=== PATIENT | male | born 1945 | race Hispanic/Latino ===

== ENCOUNTER 2017-08-16 09:36 | Outpatient (CLI) | payer MEDICAID ==
--- NOTE | 2017-08-16 11:48 | PRG ---
DATE OF SERVICE: 08/16/2017 HISTORY: Mr. Kana Post is a very pleasant 72-year-old gentleman, Samoan speaking only, who presents to the [facility]ound [facility] for evaluation of a wound of his right soqdh-gin-qruz amputation stump, subsequent to right mlyef-otu-jxzp amputation. The patient underwent intraoperative debridement an d irrigation. At this time, the patient also underwent wound VAC placement. Upon discharge from [facility], the patient was referred to the Wound Center for assistance with dr nhi benavides of the wound VAC. Previously, the patient stated with the aid of a front worker that orin valencia had completed taking the p.o. antibiotics as prescribed for him at the time of discharge. The pat ient has completed a course of negative pressure therapy and has been receiving dressing changes of Aquacel AG 3 times per week after cleansing and irrigation. PHYSICAL EXAMINATION: VITAL SIGNS: Temperature 98.8, pulse 74, respirations 18, blood pressure 144/65, Accu-Chek 130. EXTREMITIES: A wound of the right eoxbx-gmf-hpnq amputation stump is present, which measures approx imately 1.9 x 0.7 cm. The dimensions of the wound at the time of the patient's visit on 08/02/2017 were approximately 4.3 x 1.4 cm. Granulation tissue is present within the wound margins. Necrotic and nonviable tissue present within the wound margins was debrided with an excisional full-thickness debridement. Post-debridement measurements are approximately 0.9 x 2.3 cm. No purulent drainage i s associated with the wound. No erythema of the skin surrounding the wound is present. No macerati on of the skin of the periwound is noted. No significant edema of the right nxkbi-gle-xovn amputati on stump is present on exam today. ASSESSMENT AND PLAN: 1. Right fdyvi-yhl-dkhh amputation stump wound as described above. As stated above, the patient john s completed a course of negative pressure therapy. Dressing changes of Aquacel AG will be continued 3 times per week after cleansing and irrigation. I will see Mr. Post again in 2 weeks. 2. Diabetes mellitus. The patient's Accu-Chek in clinic today is 130. The patient has been remind ed that for optimal wound healing, his blood glucoses should remain below 150. 3. Hypertension. 4. Peripheral vascular disease. 5. Peptic ulcer disease. 6. History of gastrointestinal bleeding secondary to gastric ulcer.
== END 2017-08-16 09:37 | disposition home or self-care (01) ==
LOC: WCC 09:36
PROVIDERS: ATTEND Family Medicine
DX: T87.89 Other complications of amputation stump (principal); E11.8 Type 2 diabetes mellitus with unspecified complications; I10 Essential (primary) hypertension; I73.9 Peripheral vascular disease, unspecified; K27.9 Peptic ulcer, site unspecified, unspecified as acute or chronic, without hemorrhage or perforation
CPT/HCPCS: 11042

== ENCOUNTER 2017-09-01 08:18 | Outpatient (CLI) | payer MEDICAID ==
--- NOTE | 2017-09-01 09:20 | PRG ---
DATE OF SERVICE: 09/01/2017 HISTORY: Mr. Kana Post is a very pleasant 72-year-old gentleman, Afghan-speaking only, who presents to the Wound Center for evaluation of a wound of his right xpkur-nhi-tzhe amputation stump subsequent to right hqbzf-dri-vtpk amputation. The patient underwent intraoperative debridement and irrigation. At this time, the patient also underwent wound VAC placement. Upon discharge from [facility], the patient was referred to the Wound Center for assistance with israel ssing changes of the wound VAC. Previously, the patient stated with the aid of a financial manager that he had completed taking p.o. antibiotics as prescribed for him at the time of discharge. The patient has completed a course of negative pressure therapy and has been receiving dressing changes of Silve rcel 3 times per week after cleansing and irrigation. PHYSICAL EXAMINATION: VITAL SIGNS: Temperature 97.9, pulse 77, respirations 18, blood pressure 119/56, Accu-Chek 125. EXTREMITIES: A wound of the right muiro-hsd-qwrv amputation stump is present which measures approxi mately 0.6 x 0.8 cm. The dimensions of the wound at the time of the patient's visit on 08/16/2017 w ere approximately 1.9 x 0.7 cm. Granulation tissue is present within the wound margins. Nonviable tissue present within the wound margins was debrided with an excisional full-thickness debridement. No purulent drainage is associated with the wound. No erythema of the skin surrounding the wound i s present. No maceration of the skin of the periwound is noted. No significant edema of the right cxlvs-eiw-ftil amputation stump is present on exam today. ASSESSMENT AND PLAN: 1. Right knee amputation stump wound as described above. As stated above, the patient has complete d a course of negative pressure therapy. Dressing changes of Silvercel will be continued 3 times pe r week after cleansing and irrigation. I will see Mr. Post again in two weeks. 2. Diabetes mellitus. The patient's Accu-Chek in clinic today is 125. The patient has been remind ed that for optimal wound healing, his blood glucoses should remain below 150. 3. Hypertension. 4. Peripheral vascular disease. 5. Peptic ulcer disease. 6. History of gastrointestinal bleeding secondary to gastric ulcer.
== END 2017-09-01 08:19 | disposition home or self-care (01) ==
LOC: WCC 08:18
PROVIDERS: ATTEND Family Medicine
DX: T87.89 Other complications of amputation stump (principal); E11.9 Type 2 diabetes mellitus without complications; I10 Essential (primary) hypertension; I73.9 Peripheral vascular disease, unspecified; K27.9 Peptic ulcer, site unspecified, unspecified as acute or chronic, without hemorrhage or perforation; Z87.19 Personal history of other diseases of the digestive system
CPT/HCPCS: 11042

== ENCOUNTER 2017-09-06 09:52 | Inpatient (IN) | payer MEDICAID, SELFPAY ==
[2017-09-06 13:22] LABS: #Basophils 0.1 thou/uL (0.0-0.2); #Eosinphils 0.3 thou/uL (0.0-0.7); #Lymphocytes 1.1 thou/uL (1.20-3.40); #Monocytes 0.7 thou/uL (0.11-0.59); #Neutrophils 5.9 thou/uL (1.40-6.50); %Basophils 0.6 % (0.0-1.0); %Lymphocytes 13.5 % (21.0-51.0); %Monocytes 8.2 % (0.0-10.0); Hematocrit 37.5 % (42.0-52.0); Mean Platelet Volume 6.9 fL (7.4-10.4); Red Blood Cell (RBC) Count 4.14 mill/uL (4.70-6.10)
[2017-09-06 13:49] LABS: ALT (SGPT) 13 U/L (8-55); AST (SGOT) 13 U/L (5-34); Alkaline Phosphatase 135 U/L (40-150); Anion Gap 13 mmol/L (10-20); BUN (Urea Nitrogen) 11 mg/dL (8.4-25.7); Bilirubin, Total 0.3 mg/dL (0.2-1.2); Calc. Creatinine Clearance 0 mL/min (70-130); Calcium 9.2 mg/dL (7.8-10.44); Carbon Dioxide 26 mmol/L (23-31); Chloride 89 mmol/L (98-107); Estimated GFR-MDRD Greater than 90; Globulin 3.6 g/dL (2.4-3.5); Protein, Total 7.5 g/dL (5.8-8.1)
[2017-09-06 13:50] LABS: Bilirubin Negative (Negative); Blood, Urine Negative (Negative); Glucose, Urine (Dipstick) 100 mg/dL (Negative); Ketone, Urine Negative (Negative); Nitrite Negative (Negative); Protein, Urine (Dipstick) Negative (Neg-Trace); Urobilinogen 0.2 mg/dL (0.2-1.0)
[2017-09-06] MEDS ORDERED: Piperacillin/Tazobactam 3.375 GM VIAL ONE (15:22)
--- NOTE | 2017-09-06 15:35 | RAD ---
LEFT FOOT THREE VIEWS: History: 72-year-old male with left toe pain. FINDINGS: There is bony demineralization. Degenerative osteoarthrosis changes are noted including the first me tatarsal phalangeal joint. Deformity of the fifth metatarsal evidence for an old healed fracture. No evidence for an acute fracture. IMPRESSION: Degenerative and osteoarthrosis changes with bony demineralization and old healed fracture of the fi fth metatarsal. No acute fracture. POS: OFF
[2017-09-06] MEDS ORDERED: Senokot 8.6 MG TAB PO PRN (16:51)
[2017-09-06] MEDS ORDERED: Milk Of Magnesia 30 ML UDCUP PO PRN (16:51)
[2017-09-06] MEDS ORDERED: Zolpidem Tartrate 5 MG TAB PO PRN (16:51)
[2017-09-06] MEDS ORDERED: Mag-Al 1200 mg/1200 mg/30 ML UDCUP PO PRN (16:51)
[2017-09-06] MEDS ORDERED: Eucerin (Mineral Oil/Petrolatum,White) 30 gm Jar TOP PRN (16:51)
[2017-09-06] MEDS ORDERED: Dextrose 50% Abboject 50 ML SYRINGE SLOW IVP PRN (16:51)
[2017-09-06] MEDS ORDERED: HumaLOG 300 UNITS/3 ML VIAL SC PRN (16:51)
[2017-09-06] MEDS ORDERED: Acetaminophen 325 MG TAB PO PRN (16:51)
[2017-09-06] MEDS ORDERED: Loratadine 10 MG TAB PO PRN (16:51)
[2017-09-06] MEDS ORDERED: Diabetic Tussin 200 MG/10 ML UDCUP PO PRN (16:51)
[2017-09-06] MEDS ORDERED: Ondansetron ODT 4 MG TAB PO PRN (16:51)
[2017-09-06] MEDS ORDERED: Ondansetron HCl/PF 4 MG/2 ML Vial IVP PRN (16:51)
[2017-09-06] MEDS ORDERED: Dextrose 5% in Water 1,000 ML IV PRN (16:51)
[2017-09-06] MEDS ORDERED: Loperamide HCl 2 MG CAP PO PRN ×2 (16:51)
[2017-09-06] MEDS ORDERED: hydrALAZINE 20 MG/ML VIAL SLOW IVP PRN (16:51)
[2017-09-06] MEDS ORDERED: Artificial Tears 18 DROP/0.9 ML EA EYE PRN (16:51)
[2017-09-06] MEDS ORDERED: Sodium Chloride 0.65% Nasal 44 ML BOT EA NARE PRN (16:51)
[2017-09-06] MEDS ORDERED: metFORMIN 500 MG TAB PO SCH (17:00)
[2017-09-06] MEDS: Sodium Chloride 0.9% 1,000 ML IV SCH ×2 (17:52→23:23)
[2017-09-06] MEDS ORDERED: Piperacillin/Tazobactam 3.375 GM in Sodium Chloride 0.9% 100 ML IVPB SCH (18:00)
[2017-09-06 18:02] VITALS: BMI 19.9
--- NOTE | 2017-09-06 19:50 | HP ---
PRIMARY CARE PHYSICIAN: [facility]. REASON FOR ADMISSION: Left great toe gangrene. HISTORY OF PRESENT ILLNESS: A 72-year-old male who has right below knee amputation, who has underlying history of peripheral vascular disease who came to the emergency room with complaint of left foot and left toe pain. The patient noticed discoloration over the left great toe and tip of the left great toe became black. The patient also noticed blackish discoloration at the bases of the left great toe on the plantar aspect. Pain was getting worse with movement. He also noticed some drainage, which is gradually getting worse for last 2 weeks. The patient was treated for skin infection with antibiotic therapy by primary care physician, but patient is not feeling any better. Patient does have severe peripheral vascular disease. He denies any fever or chills. He denies any trauma. He denies any nausea, vomiting, or diarrhea. He denies any UTI symptoms. He denies any chest pain, palpitation or shortness of breath. In emergency room, patient had foot x-ray which showed bony degenerative changes , old healed fracture to fifth metatarsal without any acute process. Routine blood test was also unremarkable. At this point, we are admitting this patient for left great toe cellulitis and gangrenous changes. REVIEW OF SYSTEMS: Please see my HPI for pertinent positive and negative, all other review of system reviewed and negative except as mentioned in the HPI. Constitutional: Weight loss or gain, ability to conduct usual activities. Skin: Rash, itching. Eyes: Double vision, pain. ENT/Mouth: Nose bleeding, neck stiffness, pain, tenderness. Cardiovascular: Palpitations, dyspnea on exertion, orthopnea. Respiratory: Shortness of breath, wheezing, cough, hemoptysis, fever or night sweats. Gastrointestinal: Poor appetite, abdominal pain, heartburn, nausea, vomiting, constipation, or diarrhea. Genitourinary: Urgency, frequency, dysuria, nocturia. Musculoskeletal: Pain, swelling. Neurologic/Psychiatric: Anxiety, depression. Allergy/Immunologic: Skin rash, bleeding tendency. PAST MEDICAL HISTORY: Diabetes type 2, hypertension, dyslipidemia, peripheral vascular disease, gastroesophageal reflux disease, and diabetic neuropathy. PAST PSYCHIATRIC HISTORY: Anxiety and depression. PAST SURGICAL HISTORY: Right knee amputation in 05/26/2017, angiography with revascularization in 04/2017. SOCIAL HISTORY: Patient is , lives at home with the family. No history of alcohol abuse. He smokes about one half pack per day. He quit smoking in . He denies any other illicit drug abuse. FAMILY HISTORY: No strong family history of CAD, CVA or cancer. ALLERGIES: No known drug allergy. CURRENT HOME MEDICATIONS: Ferrous sulfate one tablet t.i.d., gabapentin 300 mg p.o. at bedtime, lisinopril 20 mg p.o. b.i.d., Paxil 20 mg p.o. daily, Protonix 40 mg p.o. daily, Actos 15 mg p.o. daily, metformin 1000 mg p.o. b.i.d. EMERGENCY ROOM COURSE: Patient has received vancomycin, Zosyn, and IV fluid. PHYSICAL EXAMINATION: VITAL SIGNS: On arrival, blood pressure 144/70, pulse 76, respiratory rate 20, temperature 98.2, saturation 100% on room air, weight 54.4 kilograms. GENERAL: Patient is currently alert, awake, in no obvious acute distress. HEENT: Normocephalic, atraumatic. Eyes: Pupils round, reactive to light. Extraocular muscle intact. ENT: Oropharynx within normal limits. Moist mucous membranes. No oral lesions. No pharyngeal erythema, no exudate. NECK: Supple. Range of motion is normal. No meningeal signs of irritation. LUNGS: Clear to auscultation without any rhonchi or rales. CARDIAC: S1, S2 regular. No murmur. No gallop. No rub. ABDOMEN: Soft. Bowel sounds present, nontender, nondistended. No organomegaly. No mass. No suprapubic tenderness. BACK EXAMINATION: Unremarkable, no CVA tenderness. EXTREMITIES: Upper extremity, passive movement of all joints are normal. Lower extremities, right below-knee amputation stump covered with a dressing. Left lower extremity showed black discoloration of the tip of the great toe with surrounding cellulitis and tenderness. Sensation reduced in the left lower extremity. Pulsation is also feeble on left lower extremity. NEUROLOGIC: Nonfocal examination is moving all four limbs. SKIN: No skin rash other than gangrenous changes on the left great toe. PSYCHIATRIC: Normal affect. SIGNIFICANT LABS AND IMAGINGS: Monitor showing sinus rhythm. Last x-ray of foot showing bony degenerative changes, old healed fracture of fifth metatarsals. CBC: WBC 8.0, hemoglobin 12.6, platelet 257,000. ESR 13. BMP: Sodium 123, potassium 4.5, chloride 89, carbon dioxide 26, BUN 11, creatinine 0.64, glucose 213, calcium 9.2, and lactic acid 1.0. 1. LFT: AST 13, ALT 13, alkaline phosphatase 135, albumin 3.9, CRP 2.17. 2. Urinalysis unremarkable. ASSESSMENT AND PLAN: 1. Left great toe cellulitis with early dry gangrene. This patient has severe peripheral vascular disease on the left side and required revascularization in 04/2017. He has a blackish discoloration of the tip of the left great toe as well as surrounding erythema and tenderness. We will keep this patient in the hospital for intravenous antibiotic therapy. We will consult General Surgery for evaluation. We will do Doppler arterial study for vascular assessment. Patient is not willing to go for amputation of toe, but will defer that decision to the general surgeon. While in hospital, we will continue with antibiotic therapy and will monitor clinical response. 2. Severe peripheral vascular disease. The patient had vascular angiography and revascularization in 04/2017. We will continue aspirin 81 mg p.o. daily, Lipitor 40 mg p.o. at bedtime and metoprolol 12.5 mg twice daily. 3. Diabetic neuropathy. We will continue gabapentin 300 mg p.o. at bedtime. 4. Hypertension. We will continue lisinopril 20 mg p.o. twice daily. 5. Diabetes type 2 on oral diabetic medication. We will continue Actos 15 mg p.o. daily along with metformin 1000 mg p.o. b.i.d. Diabetic diet will be given. 6. Anemia, normocytic, normochromic. We will continue ferrous sulfate 325 mg p.o. b.i.d. 7. Anxiety and depression. We will continue Paxil 20 mg p.o. daily. 8. Deep venous thrombosis prophylaxis. Lovenox 40 mg subcu daily. 9. Gastrointestinal prophylaxis, Protonix 40 mg p.o. daily. 10. Hyponatremia, etiology uncertain, but we will give him IV fluid at NS 70 mL per hour and will repeat BMP tomorrow. 11. Code status: The patient is full code and patient's is surrogate decision maker. Disposition plan based on clinical course. We are expecting patient's stay in the hospital more than 2 midnights. Plan of care discussed with the patient's family member at bedside in the emergency room. SAUL
[2017-09-06] MEDS: Lisinopril 20 MG TAB PO SCH (20:55)
[2017-09-06] MEDS: Metoprolol Tartrate 25 MG TAB PO SCH (20:56)
[2017-09-06] MEDS: Atorvastatin Calcium 40 MG TAB PO SCH (21:00)
[2017-09-06] MEDS: Piperacillin/Tazobactam 3.375 GM in Sodium Chloride 0.9% 100 ML IVPB SCH (21:06)
[2017-09-06] MEDS: HYDROcodone/Acetaminophen 5/325 mg Tablet PO PRN (21:11)
[2017-09-07] MEDS: Vancomycin HCl 750 MG in Sodium Chloride 0.9% 250 ML 250 ML IVPB SCH ×2 (02:05→14:00)
[2017-09-07] MEDS: Piperacillin/Tazobactam 3.375 GM in Sodium Chloride 0.9% 100 ML IVPB SCH ×4 (03:27→21:25)
[2017-09-07 03:52] LABS: #Eosinphils 0.4 thou/uL (0.0-0.7); #Lymphocytes 1.4 thou/uL (1.20-3.40); #Monocytes 0.7 thou/uL (0.11-0.59); #Neutrophils 5.1 thou/uL (1.40-6.50); %Basophils 0.6 % (0.0-1.0); %Eosinophils 4.7 % (0.0-10.0); %Lymphocytes 18.8 % (21.0-51.0); %Monocytes 8.5 % (0.0-10.0); Hematocrit 35.7 % (42.0-52.0); Mean Platelet Volume 6.8 fL (7.4-10.4); Red Blood Cell (RBC) Count 3.96 mill/uL (4.70-6.10); White Blood Cell (WBC) Count 7.6 thou/uL (4.8-10.8)
[2017-09-07] MEDS: HYDROcodone/Acetaminophen 5/325 mg Tablet PO PRN ×2 (04:02→19:04)
[2017-09-07 04:04] LABS: Anion Gap 10 mmol/L (10-20); BUN (Urea Nitrogen) 9 mg/dL (8.4-25.7); Calc. Creatinine Clearance 94 mL/min (70-130); Calcium 8.9 mg/dL (7.8-10.44); Carbon Dioxide 26 mmol/L (23-31); Chloride 97 mmol/L (98-107); Estimated GFR-MDRD Greater than 90
--- NOTE | 2017-09-07 06:11 | CON ---
DATE OF CONSULT: 09/06/2017 HISTORY OF PRESENT ILLNESS: Sincere is a 72-year-old male patient who I saw in April for PAD. He had a gangrenous right foot. He was seen by Dr. Andrew oBwen in 04/23/2017. Angiograms were obtai magda revealing severe PAD. He had aortoiliac stent placed. He ended up having a right nmpgh-xxb-ioa e amputation and subsequent to atpfw-llx-jueq amputation. The wound have problems and had to be ope magda and healed secondarily. The patient lives at home. The patient has problems with his left grea t toe. He was seen by a physician, started on antibiotics for suspected nail bed infection. This o ccurred after an injury. He is now admitted by Hospitalist Service for intravenous antibiotics and PAD. Bedside evaluation reveals palpable left femoral pulse and good dopplerable left posterior tib ial pulse and very faint dorsalis pedis pulse. He has changes in left great toe of PAD with celluli tis. There is no randy ulceration or pus. There is no edema. There were changes of PAD on the atiya ntar aspect of the foot, cellulitic process extends to the forefoot. He has tissue in the tip of the great toe. Renal function is normal. I have consulted Dr. Andrew Bowen who will see him. ALLERGIES: None. MEDICATIONS: At home, metronidazole, metformin, Actos, Protonix, Paxil, lisinopril, [place], gabapent in, Cipro. In hospital, he has been started on Zosyn. PAST SURGICAL HISTORY: Right prrqf-txk-ppdz amputation subsequent to hkuxy-xbp-izxg amputation and subsequent to debridement and healed secondarily. PAST MEDICAL HISTORY: Diabetes mellitus, hypertension, elevated cholesterol, and has history of tob acco abuse in the past, none currently. ALCOHOL: None. ALLERGIES: None. REVIEW OF SYSTEMS: Noncontributory. PHYSICAL EXAMINATION: VITAL SIGNS: Temperature 96.8, pulse 69, blood pressure 167/72. HEAD, EYES, EARS, NOSE AND THROAT: Unremarkable. LUNGS: Clear to auscultation. CARDIAC: Regular rate and rhythm without murmur or gallop. ABDOMEN: Soft, nontender. EXTREMITIES: Well-healed right srcud-ncf-fcpd amputation stump. Left groin palpable femoral pulse. Faintly dopplerable dorsalis pedis pulse. Stronger dopplerable posterior tibial pulse nonpalpable . Left foot great toe and forefoot changes as described above. LABORATORY DATA: White count 8, hemoglobin 12. Renal function normal. ASSESSMENT AND PLAN: Severe peripheral artery disease with cellulitis, left foot. Agree with intra venous antibiotics. I have consulted Dr. Andrew Bowen for arteriography. He had run-off of the [facility] leg last hospitalization. We will await further evaluation of left leg. The patient is at risk for limb loss due to peripheral artery disease. Await vascular interventional outcomes.
--- NOTE | 2017-09-07 07:11 | CON ---
DATE OF CONSULTATION: 09/07/2017 HISTORY OF PRESENT ILLNESS: Mr. Post is a 72-year-old gentleman who was admitted with left great toe pain and gangrene. He has a known history of peripheral vascular disease, status post bilateral kissing common iliac artery stents and a left external iliac artery stent in 04/2017. He has subsequently undergone a right jihnf-gpd-hcyp amputation. His left foot has been hurting him for a short period of time. He has never had any left leg evaluation with angiography or CT angiogram. PAST MEDICAL HISTORY: 1. Type 2 diabetes mellitus. 2. Peripheral vascular disease. 3. Hypertension. 4. Dyslipidemia. 5. Gastroesophageal reflux disease. PAST SURGICAL HISTORY: 1. Right above-knee amputation. 2. Revascularization percutaneously in 04/2017. SOCIAL HISTORY: The patient is . He quit smoking in 03/2017. He does not use alcohol. ALLERGIES: None. CURRENT MEDICATIONS: Noted. PHYSICAL EXAMINATION: GENERAL: This is a well-developed, well-nourished man, resting comfortably in bed. VITAL SIGNS: Temperature is 97.8, pulse 68 and regular, blood pressure 125/62. LUNGS: Clear bilaterally. HEART: Rhythm is regular. ABDOMEN: Soft, nontender. EXTREMITIES: Left lower extremity has a dressing on his great toe, right above knee amputation is healing nicely. VASCULAR: He has palpable femoral pulses bilaterally. I cannot palpate pulses below his femoral in either leg. ASSESSMENT AND PLAN: I have reviewed his angiograms from April. On the right side he had a chronically occluded superficial femoral artery with no runoff until a small posterior tibial was visualized at the level of the ankle. He has palpable femoral pulses, so his stents that were placed in April should be widely patent. I feel like a CT angiogram is the best initial route of evaluation. I will review these later today and we can make plans if we feel like he is revascularizable for that standpoint. SAUL
[2017-09-07] MEDS ORDERED: Enoxaparin Sodium 40 MG/0.4 ML SYRINGE SC SCH ×2 (09:00→21:00)
[2017-09-07] MEDS ORDERED: FLU VACC TS2017-18 (>65YR) 0.5 ML SYRINGE IM ONE (09:00)
--- NOTE | 2017-09-07 10:12 | CT ---
CT ANGIO OF ABDOMEN AND PELVIS AND LOWER EXTREMITIES WITH IV ENHANCEMENT: Date: 09/07/17 Multiple axial tomograms obtained through the abdomen and pelvis, and both lower extremities, with I V enhancement in the arterial phase following an angio protocol with multiplanar reconstruction and 3D postprocessing. HISTORY: Gangrene left foot. Prior BKA of right leg. Diabetes. FINDINGS: The abdominal aorta exhibits diffuse atherosclerotic change. There is mild ectasia of the distal abd ominal aorta with diameter measured at 2.6 cm. Lumen is very irregular with peripheral thrombus with in the abdominal aorta. There is no significant stenosis at the origin of the celiac artery. There is calcified plaque at the origin of the superior mesenteric artery, which does appear to prod uce moderate stenosis which is approaching hemodynamic significance (50% diameter). There is atherosclerotic plaque at the origin of both renal arteries. There is moderate stenosis at the origin of both renal arteries, although this does not appear to be greater than 50% diameter. At the aortic bifurcation, there is an aortoiliac graft in place which is patent. Graft ties in to b oth common iliac arteries. There is atherosclerotic plaque seen in the mid and distal right common iliac with mild aneurysmal d ilatation measured at approximately 1.3 cm diameter. This produces mild stenosis which does not appe ar hemodynamically significant. The right internal iliac shows diffuse disease. The right external iliac is patent without significant stenosis. The right common femoral shows diffuse disease. There is significant stenosis at the origin of the right superficial femoral artery, which is greate r than 50% diameter. Profunda is patent. Diffuse disease throughout the right superficial femoral with occlusion in the upper thigh. Patient has an vgjel-vin-kcxq amputation on the right. The left mid and distal common iliac shows diffuse disease, but no significant stenosis. There is mi ld aneurysmal dilatation of the distal left common iliac measured at up to 1.5 cm diameter. Diffuse disease at the origin of the left internal and external iliacs. There is a left external juaquin ac stent which begins at the origin of the left external iliac. The stent does appear patent. There is stenosis at the distal end of the stent and at the beginning of the left common femoral, which do es appear to be hemodynamically significant, greater than 50%. Diffuse disease in the left common femoral. There is mild stenosis at the origin of the left superfi cial femoral artery and there is significant stenosis in the proximal left superficial femoral arter y just beyond its origin estimated at 50% diameter. Diffuse disease throughout the proximal left superficial femoral artery with occlusion in the mid th igh. There is reconstitution near Jaiden's canal. The popliteal is patent. Popliteal does trifurcate below the knee joint and there are three vessels identified to the ankle. The anterior tibial arter y occludes at the ankle. Lung bases show chronic lung parenchymal change. Liver, spleen, pancreas, adrenal glands, and kidneys are unremarkable. Bowel loops are unremarkable. IMPRESSION: 1. Diffuse atherosclerotic disease involving the abdominal aorta with ectasia. 2. 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 3. Aortoiliac graft patent. 4. 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 5. Significant stenosis at the origin of the left external iliac. 6. Occlusion of the left superficial femoral artery mid thigh with reconstitution distally as descr ibed above. POS: CRESCENCIO
--- NOTE | 2017-09-07 13:12 | PDOC.PN ---
- Subjective Encounter Start Date: 09/07/17 Encounter Start Time: 13:10 Patient seen and examined. No new complaints. No overnight events - Objective Resuscitation Status: Resuscitation Status FULL:Full Resuscitation MAR Reviewed: Yes Vital Signs & Weight: Vital Signs (12 hours) Temp Pulse Resp BP BP Pulse Ox 09/07/17 12:12 97.9 F 62 18 124/60 100 09/07/17 08:14 98.6 F 74 18 97 09/07/17 08:00 98.6 F 74 18 129/60 97 09/07/17 04:00 97.8 F 68 18 125/62 98 Weight Admit Weight 119 lb 14.896 oz Weight 119 lb 14.896 oz I&O: 09/06/17 09/07/17 09/08/17 06:59 06:59 06:59 Intake Total 800 Output Total 1550 Balance -750 Result Diagrams: 09/07/17 03:27 09/07/17 03:27 Additional Labs: Accuchecks 09/07/17 09/07/17 09/06/17 12:12 06:50 21:05 POC Glucose 157 H 146 H 175 H 09/06/17 09/06/17 17:28 15:02 POC Glucose 134 H 182 H Phys Exam - Physical Examination Constitutional: NAD Respiratory: no wheezing, no rhonchi Cardiovascular: RRR, no rub Gastrointestinal: soft, non-tender, positive bowel sounds Musculoskeletal: no edema no new skin findings Neurological: moves all 4 limbs Dx/Plan (1) Cellulitis of great toe of left foot Code(s): L03.032 - CELLULITIS OF LEFT TOE Status: Acute Comment: with early gangrene (2) Hyponatremia Code(s): E87.1 - HYPO-OSMOLALITY AND HYPONATREMIA Status: Acute (3) DM type 2 (diabetes mellitus, type 2) Status: Chronic Qualifiers: Comment: with diabetic neuropathy (4) Peripheral arterial disease Code(s): I73.9 - PERIPHERAL VASCULAR DISEASE, UNSPECIFIED Status: Chronic Comment: s/p stenting b/l 05/08 (5) other issues per previous notes Status: Chronic Comment: Anxiety/Depression, chronic Anemia, h/o rt AKA - Plan cont current plan of care, continue antibiotics, DVT proph w/lovenox * Cont Atbx * AM labs * s/p MRI and CTA - results pending * CT/Gen surg pending * Cont to monitor * DC Metformin * Change Lovenox to Heparin for DVT prophylaxis Review of Systems - Review of Systems Respiratory: negative: Cough, Dry, Shortness of Breath, Hemoptysis, SOB with Excertion, Pleuritic Pain, Sputum, Wheezing Cardiovascular: negative: Chest Pain, Palpitations, Orthopnea, Paroxysmal Noc. Dyspnea, Edema, Light Headedness, Other - Medications/Allergies Allergies/Adverse Reactions: Allergies Allergy/AdvReac Type Severity Reaction Status Date / Time No Known Drug Allergies Allergy Verified 06/07/17 01:14 Medications: Current Medications Acetaminophen (Tylenol) 650 mg PO Q4H PRN PRN Reason: Headache/Fever or Pain Hydrocodone Bitart/Acetaminophen ([place] 5/325) 1 tab PO Q4H PRN PRN Reason: Moderate Pain (4-6) Last Admin: 09/07/17 04:02 Dose: 1 tab Al Hydroxide/Mg Hydroxide (Maalox) 30 ml PO Q6H PRN PRN Reason: Heartburn or Indigestion Artificial Tears (Tears Naturale) 0 drop EA EYE PRN PRN PRN Reason: Dry Eyes Aspirin (Aspirin Chewable) 81 mg PO DAILY [facility] Atorvastatin Calcium (Lipitor) 40 mg PO HS [facility] Last Admin: 09/06/17 21:00 Dose: 40 mg Dextrose/Water (Dextrose 50%) 25 gm SLOW IVP PRN PRN PRN Reason: Hypoglycemia Enoxaparin Sodium (Lovenox) 40 mg SC 2100 [facility] Gabapentin (Neurontin) 300 mg PO DAILY [facility] Glucagon (Glucagon) 1 mg IM PRN PRN PRN Reason: Hypoglycemia Guaifenesin (Robitussin Sf) 200 mg PO Q4H PRN PRN Reason: Cough Hydralazine HCl (Apresoline) 10 mg SLOW IVP Q4H PRN PRN Reason: Systolic BP > 180 Dextrose/Water (D5w) 1,000 mls @ 0 mls/hr IV .Q0M PRN; As Directed PRN Reason: Hypoglycemia Sodium Chloride (Normal Saline 0.9%) 1,000 mls @ 70 mls/hr IV .[id number] [facility] Last Admin: 09/06/17 23:23 Dose: 1,000 mls Piperacillin Sod/Tazobactam (Sod 3.375 gm/ Sodium Chloride) 100 mls @ 200 mls/ hr IVPB 0300,0900,1500,2100 [facility] Last Admin: 09/07/17 08:55 Dose: 100 mls Vancomycin HCl 750 mg/ Sodium (Chloride) 250 mls @ 250 mls/hr IVPB 0200,1400 [facility] Last Admin: 09/07/17 02:05 Dose: 250 mls Insulin Human Lispro (Humalog) 0 units SC .MODERATE SLIDING SC PRN PRN Reason: Moderate Correctional Scale Insulin Human Lispro (Humalog) 0 units SC .BEDTIME SLIDING SC PRN PRN Reason: Bedtime Correctional Scale Lisinopril (Zestril) 20 mg PO BID [facility] Last Admin: 09/06/17 20:55 Dose: 20 mg Loperamide HCl (Imodium) 2 mg PO PRN PRN PRN Reason: Diarrhea/Loose Stools Loperamide HCl (Imodium) 2 mg PO PRN PRN PRN Reason: Diarrhea/Loose Stools Loratadine (Claritin) 10 mg PO DAILYPRN PRN PRN Reason: Sinus Symptoms Magnesium Hydroxide (Milk Of Magnesium) 30 ml PO DAILYPRN PRN PRN Reason: Constipation Metoprolol Tartrate (Lopressor) 12.5 mg PO BID [facility] Last Admin: 09/06/17 20:56 Dose: 12.5 mg Mineral Oil/White Petrolatum (Eucerin Cream) 0 gm TOP BIDPRN PRN PRN Reason: Dry Skin Miscellaneous Medication (Pharmacy To Dose) 1 each IVPB ONE PRN PRN Reason: Pharmacy to dose Stop: 10/06/17 16:52 Ondansetron HCl (Zofran Odt) 4 mg PO Q6H PRN PRN Reason: Nausea/Vomiting Ondansetron HCl (Zofran) 4 mg IVP Q6H PRN PRN Reason: Nausea/Vomiting Pantoprazole Sodium (Protonix) 40 mg PO DAILY [facility] Paroxetine HCl (Paxil) 20 mg PO DAILY [facility] Pioglitazone HCl (Actos) 15 mg PO DAILY [facility] Saccharomyces Boulardii (Florastor) 250 mg PO DAILY [facility] Senna (Senokot) 2 tab PO HSPRN PRN PRN Reason: Constipation Sodium Chloride ([place] Nasal [place] 0.65%) 0 ml EA NARE QIDPRN PRN PRN Reason: Nasal Congestion Sodium Chloride (Flush - Normal Saline) 10 ml IVF Q12HR [facility] Last Admin: 09/06/17 21:06 Dose: 10 ml Sodium Chloride (Flush - Normal Saline) 10 ml IVF PRN PRN PRN Reason: Saline Flush Zolpidem Tartrate (Ambien) 5 mg PO HSPRN PRN PRN Reason: Insomnia
[2017-09-07] MEDS ORDERED: Gadobenate Dimeglumine 529 MG/1 ML (20ML VIAL) ONE (16:12)
[2017-09-07] MEDS: Lisinopril 20 MG TAB PO SCH ×2 (16:35→21:26)
[2017-09-07] MEDS: Gabapentin 300 MG CAP PO SCH (16:35)
[2017-09-07] MEDS: Metoprolol Tartrate 25 MG TAB PO SCH ×2 (16:35→21:25)
[2017-09-07] MEDS: PARoxetine 20 MG TAB PO SCH (16:36)
[2017-09-07] MEDS: Saccharomyces boulardii 250 MG CAP PO SCH (16:36)
[2017-09-07] MEDS: Pioglitazone HCl 15 MG TAB PO SCH (16:38)
--- NOTE | 2017-09-07 17:09 | MRI ---
LEFT FOREFOOT MRI WITH AND WITHOUT IV CONTRAST: Date: 09/07/17 HISTORY: 72-year-old male with left great toe metatarsophalangeal joint diabetic infection. Tripped on foot 3 weeks ago. TECHNIQUE: Multiplanar, multisequence MRI examination of the left foot performed with and without IV contrast. FINDINGS: There is some motion artifact on several sequences resulting in image degradation. There are some ar throsis changes, particularly involving the first metatarsophalangeal joint, including medial and la teral sesamoids. There is a small focus of intraosseous cystic change within the proximal aspect of the proximal phalanx probably secondary to degenerative change. No evidence for drainable abscess. N o evidence for osteomyelitis. Minimal nonspecific T2 hyperintensity within the intrinsic muscles of the foot, which is nonspecific but can be seen in diabetic patients. 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 No evidence for osteomyelitis. No evidence for drainable abscess. Minimal nonspecific T 2 hyperintensity within the intrinsic muscles of the foot. POS: OFF
--- NOTE | 2017-09-07 18:40 | PRG ---
DATE OF SERVICE: 09/07/2017 SUBJECTIVE: Kana Post is seen by Dr. Andrew Bowen. CT angiogram performed and Dr. Bowen is planning femoral popliteal artery bypass surgical graft on . The patient complains of some mild discomfort in his left great toe. He is not having rest pain of his foot. His neuropathy pro bably prevents that. OBJECTIVE: His left toe has not changed. I have ordered an MRI of his left foot which is pending. PROCEDURE: MRI has been performed, results are pending. ASSESSMENT AND PLAN: Severe peripheral vascular disease with occluded superficial femoral artery. Plan femoral popliteal artery bypass grafting on by Dr. Andrew Bowen, await revascularizat ion, follow clinically, await MRI results. No surgical intervention is planned at this point.
[2017-09-07] MEDS: HumaLOG 300 UNITS/3 ML VIAL SC PRN (18:48)
[2017-09-07] MEDS: Sodium Chloride 0.9% 1,000 ML IV SCH (20:03)
[2017-09-07] MEDS: Atorvastatin Calcium 40 MG TAB PO SCH (21:26)
[2017-09-07] MEDS: Heparin 5,000 UNITS/ML VIAL SC SCH (21:26)
[2017-09-08 01:17] LABS: Vancomycin, Trough 7.7 ug/mL
[2017-09-08] MEDS: Vancomycin HCl 750 MG in Sodium Chloride 0.9% 250 ML 250 ML IVPB SCH ×3 (01:42→17:42)
[2017-09-08] MEDS: Piperacillin/Tazobactam 3.375 GM in Sodium Chloride 0.9% 100 ML IVPB SCH ×4 (03:43→20:27)
[2017-09-08 06:18] LABS: Hemoglobin A1c 7.1 % (4.0-6.0)
[2017-09-08 06:57] LABS: Anion Gap 11 mmol/L (10-20); BUN (Urea Nitrogen) 11 mg/dL (8.4-25.7); Calc. Creatinine Clearance 83 mL/min (70-130); Carbon Dioxide 24 mmol/L (23-31); Chloride 100 mmol/L (98-107); Estimated GFR-MDRD Greater than 90
[2017-09-08] MEDS: PARoxetine 20 MG TAB PO SCH (08:28)
[2017-09-08] MEDS: Saccharomyces boulardii 250 MG CAP PO SCH (08:28)
[2017-09-08] MEDS: Metoprolol Tartrate 25 MG TAB PO SCH ×2 (08:29→20:29)
[2017-09-08] MEDS: Gabapentin 300 MG CAP PO SCH (08:29)
[2017-09-08] MEDS: Lisinopril 20 MG TAB PO SCH ×2 (08:29→20:29)
[2017-09-08] MEDS: Pioglitazone HCl 15 MG TAB PO SCH (11:00)
[2017-09-08] MEDS: Heparin 5,000 UNITS/ML VIAL SC SCH ×2 (11:00→20:37)
[2017-09-08] MEDS: HumaLOG 300 UNITS/3 ML VIAL SC PRN (11:09)
[2017-09-08] MEDS ORDERED: NPH, Human Insulin Isophane 300 UNIT/3 ML VIAL SC SCH (13:15)
[2017-09-08] MEDS: HYDROcodone/Acetaminophen 5/325 mg Tablet PO PRN ×2 (15:07→20:27)
--- NOTE | 2017-09-08 15:38 | PDOC.PN ---
- Subjective Encounter Start Date: 09/08/17 Encounter Start Time: 09:00 Patient seen and examined. No new complaints. No overnight events - Objective Resuscitation Status: Resuscitation Status FULL:Full Resuscitation MAR Reviewed: Yes Vital Signs & Weight: Vital Signs (12 hours) Temp Pulse Resp BP BP Pulse Ox 09/08/17 10:59 98.2 F 70 18 117/57 L 99 09/08/17 09:33 98.5 F 80 16 100 09/08/17 08:29 120/57 L 09/08/17 07:15 98.5 F 80 16 120/57 L 98 Weight Admit Weight 119 lb 14.896 oz Weight 119 lb 14.896 oz I&O: 09/07/17 09/08/17 09/09/17 06:59 06:59 06:59 Intake Total 800 1340 Output Total 1550 960 Balance -750 380 Result Diagrams: 09/07/17 03:27 09/08/17 00:48 Additional Labs: Accuchecks 09/08/17 09/08/17 09/07/17 10:58 05:39 20:59 POC Glucose 285 H 178 H 182 H 09/07/17 17:49 POC Glucose 276 H Phys Exam - Physical Examination Constitutional: NAD Respiratory: no wheezing, no rhonchi Cardiovascular: RRR, no rub Gastrointestinal: soft, non-tender, positive bowel sounds Neurological: moves all 4 limbs Dx/Plan (1) Cellulitis of great toe of left foot Code(s): L03.032 - CELLULITIS OF LEFT TOE Status: Acute Comment: with early gangrene (2) Hyponatremia Code(s): E87.1 - HYPO-OSMOLALITY AND HYPONATREMIA Status: Acute Comment: improving (3) DM type 2 (diabetes mellitus, type 2) Status: Chronic Qualifiers: Comment: with diabetic neuropathy (4) Peripheral arterial disease Code(s): I73.9 - PERIPHERAL VASCULAR DISEASE, UNSPECIFIED Status: Chronic (5) other issues per previous notes Status: Chronic Comment: Anxiety/Depression, chronic Anemia, h/o rt AKA - Plan cont current plan of care, DVT proph w/heparin * One dose of 10 units NPH * Cont other meds as below * NPO past MN for surgery in AM * Cont Atbx * CT/Gen surg following * Cont to monitor Review of Systems - Review of Systems Respiratory: negative: Cough, Dry, Shortness of Breath, Hemoptysis, SOB with Excertion, Pleuritic Pain, Sputum, Wheezing Cardiovascular: negative: Chest Pain, Palpitations, Orthopnea, Paroxysmal Noc. Dyspnea, Edema, Light Headedness, Other Gastrointestinal: negative: Nausea, Vomiting, Abdominal Pain, Diarrhea, Constipation, Melena, Hematochezia, Other - Medications/Allergies Allergies/Adverse Reactions: Allergies Allergy/AdvReac Type Severity Reaction Status Date / Time No Known Drug Allergies Allergy Verified 06/07/17 01:14 Medications: Current Medications Acetaminophen (Tylenol) 650 mg PO Q4H PRN PRN Reason: Headache/Fever or Pain Hydrocodone Bitart/Acetaminophen ([place] 5/325) 1 tab PO Q4H PRN PRN Reason: Moderate Pain (4-6) Last Admin: 09/08/17 15:07 Dose: 1 tab Al Hydroxide/Mg Hydroxide (Maalox) 30 ml PO Q6H PRN PRN Reason: Heartburn or Indigestion Artificial Tears (Tears Naturale) 0 drop EA EYE PRN PRN PRN Reason: Dry Eyes Aspirin (Aspirin Chewable) 81 mg PO DAILY [facility] Last Admin: 09/08/17 11:00 Dose: 81 mg Atorvastatin Calcium (Lipitor) 40 mg PO HS [facility] Last Admin: 09/07/17 21:26 Dose: 40 mg Dextrose/Water (Dextrose 50%) 25 gm SLOW IVP PRN PRN PRN Reason: Hypoglycemia Gabapentin (Neurontin) 300 mg PO DAILY [facility] Last Admin: 09/08/17 08:29 Dose: 300 mg Glucagon (Glucagon) 1 mg IM PRN PRN PRN Reason: Hypoglycemia Guaifenesin (Robitussin Sf) 200 mg PO Q4H PRN PRN Reason: Cough Heparin Sodium (Porcine) (Heparin) 5,000 units SC BID [facility] Last Admin: 09/08/17 11:00 Dose: 5,000 units Hydralazine HCl (Apresoline) 10 mg SLOW IVP Q4H PRN PRN Reason: Systolic BP > 180 Dextrose/Water (D5w) 1,000 mls @ 0 mls/hr IV .Q0M PRN; As Directed PRN Reason: Hypoglycemia Sodium Chloride (Normal Saline 0.9%) 1,000 mls @ 70 mls/hr IV .[id number] [facility] Last Admin: 09/07/17 20:03 Dose: 1,000 mls Piperacillin Sod/Tazobactam (Sod 3.375 gm/ Sodium Chloride) 100 mls @ 200 mls/ hr IVPB 0300,0900,1500,2100 [facility] Last Admin: 09/08/17 14:57 Dose: 100 mls Vancomycin HCl 750 mg/ Sodium (Chloride) 250 mls @ 250 mls/hr IVPB 0200,1000, 1800 [facility] Last Admin: 09/08/17 11:04 Dose: 250 mls Insulin Human Lispro (Humalog) 0 units SC .MODERATE SLIDING SC PRN PRN Reason: Moderate Correctional Scale Last Admin: 09/08/17 11:09 Dose: 6 unit Insulin Human Lispro (Humalog) 0 units SC .BEDTIME SLIDING SC PRN PRN Reason: Bedtime Correctional Scale Lisinopril (Zestril) 20 mg PO BID [facility] Last Admin: 09/08/17 08:29 Dose: 20 mg Loperamide HCl (Imodium) 2 mg PO PRN PRN PRN Reason: Diarrhea/Loose Stools Loperamide HCl (Imodium) 2 mg PO PRN PRN PRN Reason: Diarrhea/Loose Stools Loratadine (Claritin) 10 mg PO DAILYPRN PRN PRN Reason: Sinus Symptoms Magnesium Hydroxide (Milk Of Magnesium) 30 ml PO DAILYPRN PRN PRN Reason: Constipation Metoprolol Tartrate (Lopressor) 12.5 mg PO BID [facility] Last Admin: 09/08/17 08:29 Dose: 12.5 mg Mineral Oil/White Petrolatum (Eucerin Cream) 0 gm TOP BIDPRN PRN PRN Reason: Dry Skin Miscellaneous Medication (Pharmacy To Dose) 1 each IVPB ONE PRN PRN Reason: Pharmacy to dose Stop: 10/06/17 16:52 Ondansetron HCl (Zofran Odt) 4 mg PO Q6H PRN PRN Reason: Nausea/Vomiting Ondansetron HCl (Zofran) 4 mg IVP Q6H PRN PRN Reason: Nausea/Vomiting Pantoprazole Sodium (Protonix) 40 mg PO DAILY [facility] Last Admin: 09/08/17 08:29 Dose: 40 mg Paroxetine HCl (Paxil) 20 mg PO DAILY [facility] Last Admin: 09/08/17 08:28 Dose: 20 mg Pioglitazone HCl (Actos) 15 mg PO DAILY [facility] Last Admin: 09/08/17 11:00 Dose: 15 mg Saccharomyces Boulardii (Florastor) 250 mg PO DAILY [facility] Last Admin: 09/08/17 08:28 Dose: 250 mg Senna (Senokot) 2 tab PO HSPRN PRN PRN Reason: Constipation Sodium Chloride ([place] Nasal [place] 0.65%) 0 ml EA NARE QIDPRN PRN PRN Reason: Nasal Congestion Sodium Chloride (Flush - Normal Saline) 10 ml IVF Q12HR [facility] Last Admin: 09/08/17 08:32 Dose: 10 ml Sodium Chloride (Flush - Normal Saline) 10 ml IVF PRN PRN PRN Reason: Saline Flush Zolpidem Tartrate (Ambien) 5 mg PO HSPRN PRN PRN Reason: Insomnia
[2017-09-08] MEDS: Sodium Chloride 0.9% 1,000 ML IV SCH (17:46)
[2017-09-08] MEDS: Atorvastatin Calcium 40 MG TAB PO SCH (20:30)
[2017-09-09 01:18] LABS: Vancomycin, Trough 12.8 ug/mL
[2017-09-09] MEDS: Vancomycin HCl 750 MG in Sodium Chloride 0.9% 250 ML 250 ML IVPB SCH ×3 (03:42→18:12)
[2017-09-09] MEDS: Sodium Chloride 0.9% 1,000 ML IV SCH ×2 (04:21→17:22)
[2017-09-09] MEDS: Piperacillin/Tazobactam 3.375 GM in Sodium Chloride 0.9% 100 ML IVPB SCH ×2 (04:24→08:52)
[2017-09-09] MEDS: Metoprolol Tartrate 25 MG TAB PO SCH ×2 (08:52→21:18)
[2017-09-09] MEDS: Gabapentin 300 MG CAP PO SCH (08:52)
[2017-09-09] MEDS: Lisinopril 20 MG TAB PO SCH ×2 (08:52→21:19)
[2017-09-09] MEDS: Heparin 5,000 UNITS/ML VIAL SC SCH ×2 (08:52→21:20)
[2017-09-09] MEDS: Saccharomyces boulardii 250 MG CAP PO SCH (08:53)
[2017-09-09] MEDS: Pioglitazone HCl 15 MG TAB PO SCH (08:53)
[2017-09-09] MEDS: PARoxetine 20 MG TAB PO SCH (08:53)
[2017-09-09] MEDS ORDERED: Heparin 5,000 UNITS/ML VIAL ONE (08:57)
[2017-09-09] MEDS ORDERED: Protamine Sulfate 50 MG/5 ML VIAL ONE (08:57)
[2017-09-09] MEDS ORDERED: Fentanyl 250 MCG/5 ML VIAL ONE (10:48)
[2017-09-09] MEDS ORDERED: Propofol 200 MG/20 ML VIAL ONE (11:27)
[2017-09-09] MEDS ORDERED: Glycopyrrolate 0.2 MG/ML 5 ML SYRINGE ONE (11:27)
[2017-09-09] MEDS ORDERED: Ondansetron HCl/PF 4 MG/2 ML Vial ONE (11:27)
[2017-09-09] MEDS ORDERED: Promethazine HCl 25 MG/ML VIAL IM PRN (13:31)
[2017-09-09] MEDS ORDERED: Ondansetron HCl/PF 4 MG/2 ML Vial IVP PRN (13:31)
[2017-09-09] MEDS ORDERED: Promethazine HCl 25 MG/ML VIAL SLOW IVP PRN (13:31)
[2017-09-09] MEDS ORDERED: hydrALAZINE 20 MG/ML VIAL ONE (13:46)
[2017-09-09] MEDS ORDERED: Fentanyl 100 MCG/2 ML VIAL ONE (13:52)
[2017-09-09] MEDS ORDERED: Piperacillin/Tazobactam 3.375 GM, Admixture Fee 1 EACH in Sodium Chloride 0.9% 100 ML IVPB SCH (15:00)
[2017-09-09] MEDS ORDERED: traMADol HCl 50 MG TAB PO PRN ×2 (15:09)
[2017-09-09] MEDS ORDERED: Fentanyl 100 MCG/2 ML VIAL SLOW IVP PRN (15:09)
[2017-09-09] MEDS: HumaLOG 300 UNITS/3 ML VIAL SC PRN (15:36)
[2017-09-09] MEDS: Piperacillin/Tazobactam 3.375 GM, Admixture Fee 1 EACH in Sodium Chloride 0.9% 100 ML IVPB SCH ×2 (17:22→23:36)
--- NOTE | 2017-09-09 17:35 | PDOC.PN ---
- Subjective Encounter Start Date: 09/09/17 Encounter Start Time: 17:33 Patient seen and examined. No new complaints. No overnight events. s/p fem-pop bypass - Objective Resuscitation Status: Resuscitation Status FULL:Full Resuscitation MAR Reviewed: Yes Vital Signs & Weight: Vital Signs (12 hours) Temp Pulse Resp BP BP Pulse Ox 09/09/17 08:56 99.0 F 66 16 97 09/09/17 08:52 120/57 L 09/09/17 08:00 99.0 F 66 16 162/58 H 09/09/17 07:30 98.8 F 66 18 162/58 H 97 Weight Admit Weight 119 lb 14.896 oz Weight 119 lb 14.896 oz I&O: 09/08/17 09/09/17 09/10/17 06:59 06:59 06:59 Intake Total 1340 1880 Output Total 960 Balance 380 1880 Result Diagrams: 09/07/17 03:27 09/08/17 00:48 Additional Labs: Accuchecks 09/09/17 09/09/17 09/08/17 15:23 05:40 20:05 POC Glucose 218 H 186 H 161 H Phys Exam - Physical Examination Constitutional: NAD Respiratory: no wheezing, no rhonchi Cardiovascular: RRR, no rub Gastrointestinal: soft, non-tender, positive bowel sounds Dx/Plan (1) Cellulitis of great toe of left foot Code(s): L03.032 - CELLULITIS OF LEFT TOE Status: Acute Comment: with early gangrene (2) Hyponatremia Code(s): E87.1 - HYPO-OSMOLALITY AND HYPONATREMIA Status: Acute Comment: improving (3) DM type 2 (diabetes mellitus, type 2) Status: Chronic Qualifiers: Comment: with diabetic neuropathy (4) Peripheral arterial disease Code(s): I73.9 - PERIPHERAL VASCULAR DISEASE, UNSPECIFIED Status: Chronic (5) other issues per previous notes Status: Chronic Comment: Anxiety/Depression, chronic Anemia, h/o rt AKA - Plan cont current plan of care, DVT proph w/heparin * Cont to monitor * Pain controlled * Cont other meds as below * Cont Atbx * CT/Gen surg following * Cont to monitor Review of Systems - Review of Systems Respiratory: negative: Cough, Dry, Shortness of Breath, Hemoptysis, SOB with Excertion, Pleuritic Pain, Sputum, Wheezing Cardiovascular: negative: Chest Pain, Palpitations, Orthopnea, Paroxysmal Noc. Dyspnea, Edema, Light Headedness, Other Gastrointestinal: negative: Nausea, Vomiting, Abdominal Pain, Diarrhea, Constipation, Melena, Hematochezia, Other - Medications/Allergies Allergies/Adverse Reactions: Allergies Allergy/AdvReac Type Severity Reaction Status Date / Time No Known Drug Allergies Allergy Verified 06/07/17 01:14 Medications: Current Medications Acetaminophen (Tylenol) 650 mg PO Q4H PRN PRN Reason: Headache/Fever or Pain Hydrocodone Bitart/Acetaminophen ([place] 5/325) 1 tab PO Q4H PRN PRN Reason: Moderate Pain (4-6) Last Admin: 09/08/17 20:27 Dose: 1 tab Al Hydroxide/Mg Hydroxide (Maalox) 30 ml PO Q6H PRN PRN Reason: Heartburn or Indigestion Artificial Tears (Tears Naturale) 0 drop EA EYE PRN PRN PRN Reason: Dry Eyes Aspirin (Aspirin) 325 mg PO DAILY [facility] Atorvastatin Calcium (Lipitor) 40 mg PO HS [facility] Last Admin: 09/08/17 20:30 Dose: 40 mg Dextrose/Water (Dextrose 50%) 25 gm SLOW IVP PRN PRN PRN Reason: Hypoglycemia Fentanyl (Sublimaze) 25 mcg SLOW IVP Q2H PRN PRN Reason: Pain Gabapentin (Neurontin) 300 mg PO DAILY [facility] Last Admin: 09/09/17 08:52 Dose: Not Given Glucagon (Glucagon) 1 mg IM PRN PRN PRN Reason: Hypoglycemia Guaifenesin (Robitussin Sf) 200 mg PO Q4H PRN PRN Reason: Cough Heparin Sodium (Porcine) (Heparin) 5,000 units SC BID [facility] Last Admin: 09/09/17 08:52 Dose: Not Given Hydralazine HCl (Apresoline) 10 mg SLOW IVP Q4H PRN PRN Reason: Systolic BP > 180 Dextrose/Water (D5w) 1,000 mls @ 0 mls/hr IV .Q0M PRN; As Directed PRN Reason: Hypoglycemia Sodium Chloride (Normal Saline 0.9%) 1,000 mls @ 70 mls/hr IV .[id number] [facility] Last Admin: 09/09/17 17:22 Dose: 1,000 mls Vancomycin HCl 750 mg/ Sodium (Chloride) 250 mls @ 250 mls/hr IVPB 0200,1000, 1800 [facility] Last Admin: 09/09/17 15:31 Dose: Not Given Piperacillin Sod/Tazobactam Sod 3.375 gm/ Miscellaneous Medication 1 each/ Sodium Chloride 100 mls @ 200 mls/hr IVPB 0500,1100,1700,2300 [facility] Last Admin: 09/09/17 17:22 Dose: 100 mls Insulin Human Lispro (Humalog) 0 units SC .MODERATE SLIDING SC PRN PRN Reason: Moderate Correctional Scale Last Admin: 09/09/17 15:36 Dose: 4 unit Insulin Human Lispro (Humalog) 0 units SC .BEDTIME SLIDING SC PRN PRN Reason: Bedtime Correctional Scale Lisinopril (Zestril) 20 mg PO BID [facility] Last Admin: 09/09/17 08:52 Dose: Not Given Loperamide HCl (Imodium) 2 mg PO PRN PRN PRN Reason: Diarrhea/Loose Stools Loperamide HCl (Imodium) 2 mg PO PRN PRN PRN Reason: Diarrhea/Loose Stools Loratadine (Claritin) 10 mg PO DAILYPRN PRN PRN Reason: Sinus Symptoms Magnesium Hydroxide (Milk Of Magnesium) 30 ml PO DAILYPRN PRN PRN Reason: Constipation Metoprolol Tartrate (Lopressor) 12.5 mg PO BID [facility] Last Admin: 09/09/17 08:52 Dose: 12.5 mg Mineral Oil/White Petrolatum (Eucerin Cream) 0 gm TOP BIDPRN PRN PRN Reason: Dry Skin Miscellaneous Medication (Pharmacy To Dose) 1 each IVPB ONE PRN PRN Reason: Pharmacy to dose Stop: 10/06/17 16:52 Ondansetron HCl (Zofran Odt) 4 mg PO Q6H PRN PRN Reason: Nausea/Vomiting Ondansetron HCl (Zofran) 4 mg IVP Q6H PRN PRN Reason: Nausea/Vomiting Pantoprazole Sodium (Protonix) 40 mg PO DAILY [facility] Last Admin: 09/09/17 08:53 Dose: Not Given Paroxetine HCl (Paxil) 20 mg PO DAILY [facility] Last Admin: 09/09/17 08:53 Dose: Not Given Pioglitazone HCl (Actos) 15 mg PO DAILY [facility] Last Admin: 09/09/17 08:53 Dose: Not Given Saccharomyces Boulardii (Florastor) 250 mg PO DAILY [facility] Last Admin: 09/09/17 08:53 Dose: Not Given Senna (Senokot) 2 tab PO HSPRN PRN PRN Reason: Constipation Sodium Chloride ([place] Nasal [place] 0.65%) 0 ml EA NARE QIDPRN PRN PRN Reason: Nasal Congestion Sodium Chloride (Flush - Normal Saline) 10 ml IVF Q12HR [facility] Last Admin: 09/09/17 08:53 Dose: Not Given Sodium Chloride (Flush - Normal Saline) 10 ml IVF PRN PRN PRN Reason: Saline Flush Tramadol HCl (Ultram) 50 mg PO Q6H PRN PRN Reason: Pain Tramadol HCl (Ultram) 100 mg PO Q6H PRN PRN Reason: Pain Zolpidem Tartrate (Ambien) 5 mg PO HSPRN PRN PRN Reason: Insomnia Last Admin: 09/08/17 20:27 Dose: 5 mg
--- NOTE | 2017-09-09 17:44 | OP ---
DATE OF PROCEDURE: 09/09/2017 PREOPERATIVE DIAGNOSIS: Peripheral vascular disease with impending gangrene, left foot. POSTOPERATIVE DIAGNOSIS: Peripheral vascular disease with impending gangrene, left foot. PROCEDURE PERFORMED: Left femoral to above knee popliteal artery bypass utilizing 8 mm ringed Propa ten coated [place]. Note, greater saphenous vein was harvested from the left leg and was too small /thin wall to use as conduit. SURGEON: Andrew Bowen M.D. ANESTHESIA: General endotracheal, Dr. Maico Strange. ESTIMATED BLOOD LOSS: 300. DESCRIPTION OF PROCEDURE: After operative consent was obtained, the patient was brought to the oper ating room and placed in the supine position on the operating room table. Appropriate anesthetic mo nitor was placed and general endotracheal anesthesia induced. Greater saphenous vein was interrogat ed with ultrasound. It appeared to be an adequate conduit, although just under the skin. The left leg was prepped and draped in the usual sterile fashion. Greater saphenous vein was explored throug h a knee incision. The endoscopic technique was used to harvest the full length of the saphenous ve in from knee to groin. Vein appeared to be small, but potentially usable. The left common femoral artery was exposed to the groin incision. Saphenous vein was divided at the fossa ovalis. Saphenou s vein was withdrawn through the knee incision and on further inspection, the saphenous vein was rico te small distally and I elected not to use the vein as conduit. The above knee popliteal artery was exposed through Jaiden's canal. The patient was given 5000 units of heparin. After 3 minutes, pro ximal and distal clamps were placed on the femoral artery. The [place] graft was anastomosed to th e femoral artery with running 6-0 Prolene suture. Graft was then tunneled toward the knee incision. The knee incision was clamped proximally and distally. A soft segment of the artery was opened lo ngitudinally. A running 6-0 Prolene anastomosis was created. Clamps were all removed. Antegrade f low reestablished. There was a palpable pulse in the distal popliteal artery. A 50 mg protamine wa s given. Multiple stitches were placed for hemostasis. Both in the proximal and distal anastomoses . After adequate hemostasis had been obtained, wounds were copiously irrigated, closed in layers an d Dermabond applied to the skin. The patient had Doppler signal in the pedal pulses. The patient w as awakened, extubated, and transferred to the recovery room in stable condition.
[2017-09-09] MEDS: Atorvastatin Calcium 40 MG TAB PO SCH (21:19)
[2017-09-10] MEDS: Vancomycin HCl 750 MG in Sodium Chloride 0.9% 250 ML 250 ML IVPB SCH ×2 (02:40→11:10)
[2017-09-10] MEDS: Piperacillin/Tazobactam 3.375 GM, Admixture Fee 1 EACH in Sodium Chloride 0.9% 100 ML IVPB SCH ×2 (05:17→12:50)
[2017-09-10 05:24] LABS: #Eosinphils 0.1 thou/uL (0.0-0.7); #Lymphocytes 0.9 thou/uL (1.20-3.40); #Monocytes 0.7 thou/uL (0.11-0.59); #Neutrophils 6.4 thou/uL (1.40-6.50); %Basophils 0.5 % (0.0-1.0); %Eosinophils 1.4 % (0.0-10.0); %Lymphocytes 10.4 % (21.0-51.0); %Monocytes 8.6 % (0.0-10.0); Red Blood Cell (RBC) Count 3.07 mill/uL (4.70-6.10); White Blood Cell (WBC) Count 8.2 thou/uL (4.8-10.8)
[2017-09-10 05:46] LABS: ALT (SGPT) 10 U/L (8-55); AST (SGOT) 11 U/L (5-34); Alkaline Phosphatase 88 U/L (40-150); Anion Gap 11 mmol/L (10-20); BUN (Urea Nitrogen) 7 mg/dL (8.4-25.7); Bilirubin, Total 0.3 mg/dL (0.2-1.2); Calc. Creatinine Clearance 76 mL/min (70-130); Calcium 8.1 mg/dL (7.8-10.44); Carbon Dioxide 24 mmol/L (23-31); Chloride 101 mmol/L (98-107); Estimated GFR-MDRD Greater than 90; Globulin 2.8 g/dL (2.4-3.5); Protein, Total 5.8 g/dL (5.8-8.1)
[2017-09-10] MEDS: HumaLOG 300 UNITS/3 ML VIAL SC PRN ×2 (06:42→13:12)
[2017-09-10] MEDS: Pioglitazone HCl 15 MG TAB PO SCH (08:24)
[2017-09-10] MEDS: Gabapentin 300 MG CAP PO SCH (08:24)
[2017-09-10] MEDS: PARoxetine 20 MG TAB PO SCH (08:24)
[2017-09-10] MEDS: Metoprolol Tartrate 25 MG TAB PO SCH (08:24)
[2017-09-10] MEDS: Lisinopril 20 MG TAB PO SCH (08:24)
[2017-09-10] MEDS: Saccharomyces boulardii 250 MG CAP PO SCH (08:25)
[2017-09-10] MEDS: Heparin 5,000 UNITS/ML VIAL SC SCH (08:25)
[2017-09-10] MEDS: Sodium Chloride 0.9% 1,000 ML IV SCH (08:25)
[2017-09-10] MEDS ORDERED: Potassium Chloride 20 MEQ TAB PO SCH (08:45)
[2017-09-10] MEDS ORDERED: Aspirin 325 MG TAB PO SCH (09:00)
--- NOTE | 2017-09-10 11:01 | PDOC.PN ---
- Subjective Encounter Start Date: 09/10/17 Encounter Start Time: 07:30 -: old records requested/rev Patient seen and examined. No new complaints. No overnight events - Objective Resuscitation Status: Resuscitation Status FULL:Full Resuscitation MAR Reviewed: Yes Vital Signs & Weight: Vital Signs (12 hours) Temp Pulse Resp BP BP Pulse Ox 09/10/17 08:30 98.7 F 84 14 151/67 H 95 09/10/17 08:24 151/67 H 09/10/17 04:00 98.7 F 87 19 142/61 H 96 09/09/17 23:45 98.6 F 91 18 130/65 97 Weight Admit Weight 119 lb 14.896 oz Weight 119 lb 14.896 oz I&O: 09/09/17 09/10/17 09/11/17 06:59 06:59 06:59 Intake Total 1880 900 840 Output Total 200 1050 Balance 1880 700 -210 Result Diagrams: 09/10/17 04:33 09/10/17 04:33 Additional Labs: Accuchecks 09/10/17 09/10/17 09/09/17 10:43 06:33 20:25 POC Glucose 294 H 211 H 205 H 09/09/17 15:23 POC Glucose 218 H Phys Exam - Physical Examination Constitutional: NAD HEENT: PERRLA, moist MMs, sclera anicteric Neck: no JVD, supple Respiratory: no wheezing, no rales, no rhonchi Cardiovascular: RRR, no significant murmur, no rub Gastrointestinal: soft, non-tender, no distention, positive bowel sounds toe gangrene is stable and improving Neurological: non-focal, normal sensation Psychiatric: normal affect Skin: no rash, normal turgor Dx/Plan (1) Cellulitis of great toe of left foot Code(s): L03.032 - CELLULITIS OF LEFT TOE Status: Acute Comment: with early gangrene (2) Hypokalemia Code(s): E87.6 - HYPOKALEMIA Status: Acute (3) Hyponatremia Code(s): E87.1 - HYPO-OSMOLALITY AND HYPONATREMIA Status: Acute Comment: improving (4) S/P femoral-popliteal bypass surgery Code(s): Z95.828 - PRESENCE OF OTHER VASCULAR IMPLANTS AND GRAFTS Status: Acute (5) Anemia, normocytic normochromic Code(s): D64.9 - ANEMIA, UNSPECIFIED Status: Chronic (6) Anxiety and depression Code(s): F41.8 - OTHER SPECIFIED ANXIETY DISORDERS Status: Chronic (7) DM type 2 (diabetes mellitus, type 2) Status: Chronic Qualifiers: Comment: with diabetic neuropathy (8) Hypertension Code(s): I10 - ESSENTIAL (PRIMARY) HYPERTENSION Status: Chronic (9) Peripheral arterial disease Code(s): I73.9 - PERIPHERAL VASCULAR DISEASE, UNSPECIFIED Status: Chronic (10) other issues per previous notes Status: Chronic Comment: Anxiety/Depression, chronic Anemia, h/o rt AKA - Plan cont current plan of care, plan discussed w/ family, continue antibiotics * change to augmentin * replace potassium * discharge later today * medication reviewed as below * symptomatic treatment. Review of Systems - Review of Systems Constitutional: negative: Fever, Chills, Sweats, Weakness, Malaise, Other ENT: negative: Ear Pain, Ear Discharge, Nose Pain, Nose Discharge, Nose Congestion, Mouth Pain, Mouth Swelling, Throat Pain, Throat Swelling, Other Respiratory: negative: Cough, Dry, Shortness of Breath, Hemoptysis, SOB with Excertion, Pleuritic Pain, Sputum, Wheezing Cardiovascular: negative: Chest Pain, Palpitations, Orthopnea, Paroxysmal Noc. Dyspnea, Edema, Light Headedness, Other Gastrointestinal: negative: Nausea, Vomiting, Abdominal Pain, Diarrhea, Constipation, Melena, Hematochezia, Other Genitourinary: negative: Dysuria, Frequency, Incontinence, Hematuria, Retention , Other Skin: negative: Rash, Lesions, Shree, Bruising, Other - Medications/Allergies Allergies/Adverse Reactions: Allergies Allergy/AdvReac Type Severity Reaction Status Date / Time No Known Drug Allergies Allergy Verified 06/07/17 01:14 Medications: Current Medications Acetaminophen (Tylenol) 650 mg PO Q4H PRN PRN Reason: Headache/Fever or Pain Hydrocodone Bitart/Acetaminophen ([place] 5/325) 1 tab PO Q4H PRN PRN Reason: Moderate Pain (4-6) Last Admin: 09/08/17 20:27 Dose: 1 tab Al Hydroxide/Mg Hydroxide (Maalox) 30 ml PO Q6H PRN PRN Reason: Heartburn or Indigestion Artificial Tears (Tears Naturale) 0 drop EA EYE PRN PRN PRN Reason: Dry Eyes Aspirin (Aspirin) 325 mg PO DAILY [facility] Last Admin: 09/10/17 08:25 Dose: 325 mg Atorvastatin Calcium (Lipitor) 40 mg PO HS [facility] Last Admin: 09/09/17 21:19 Dose: 40 mg Dextrose/Water (Dextrose 50%) 25 gm SLOW IVP PRN PRN PRN Reason: Hypoglycemia Fentanyl (Sublimaze) 25 mcg SLOW IVP Q2H PRN PRN Reason: Pain Gabapentin (Neurontin) 300 mg PO DAILY [facility] Last Admin: 09/10/17 08:24 Dose: 300 mg Glucagon (Glucagon) 1 mg IM PRN PRN PRN Reason: Hypoglycemia Guaifenesin (Robitussin Sf) 200 mg PO Q4H PRN PRN Reason: Cough Heparin Sodium (Porcine) (Heparin) 5,000 units SC BID [facility] Last Admin: 09/10/17 08:25 Dose: 5,000 units Hydralazine HCl (Apresoline) 10 mg SLOW IVP Q4H PRN PRN Reason: Systolic BP > 180 Dextrose/Water (D5w) 1,000 mls @ 0 mls/hr IV .Q0M PRN; As Directed PRN Reason: Hypoglycemia Sodium Chloride (Normal Saline 0.9%) 1,000 mls @ 70 mls/hr IV .[id number] [facility] Last Admin: 09/10/17 08:25 Dose: Not Given Vancomycin HCl 750 mg/ Sodium (Chloride) 250 mls @ 250 mls/hr IVPB 0200,1000, 1800 [facility] Last Admin: 09/10/17 02:40 Dose: 250 mls Piperacillin Sod/Tazobactam Sod 3.375 gm/ Miscellaneous Medication 1 each/ Sodium Chloride 100 mls @ 200 mls/hr IVPB 0500,1100,1700,2300 [facility] Last Admin: 09/10/17 05:17 Dose: 100 mls Insulin Human Lispro (Humalog) 0 units SC .MODERATE SLIDING SC PRN PRN Reason: Moderate Correctional Scale Last Admin: 09/10/17 06:42 Dose: 4 unit Insulin Human Lispro (Humalog) 0 units SC .BEDTIME SLIDING SC PRN PRN Reason: Bedtime Correctional Scale Last Admin: 09/09/17 21:24 Dose: 2 unit Lisinopril (Zestril) 20 mg PO BID [facility] Last Admin: 09/10/17 08:24 Dose: 20 mg Loperamide HCl (Imodium) 2 mg PO PRN PRN PRN Reason: Diarrhea/Loose Stools Loratadine (Claritin) 10 mg PO DAILYPRN PRN PRN Reason: Sinus Symptoms Magnesium Hydroxide (Milk Of Magnesium) 30 ml PO DAILYPRN PRN PRN Reason: Constipation Metoprolol Tartrate (Lopressor) 12.5 mg PO BID [facility] Last Admin: 09/10/17 08:24 Dose: 12.5 mg Mineral Oil/White Petrolatum (Eucerin Cream) 0 gm TOP BIDPRN PRN PRN Reason: Dry Skin Miscellaneous Medication (Pharmacy To Dose) 1 each IVPB ONE PRN PRN Reason: Pharmacy to dose Stop: 10/06/17 16:52 Ondansetron HCl (Zofran Odt) 4 mg PO Q6H PRN PRN Reason: Nausea/Vomiting Ondansetron HCl (Zofran) 4 mg IVP Q6H PRN PRN Reason: Nausea/Vomiting Pantoprazole Sodium (Protonix) 40 mg PO DAILY [facility] Last Admin: 09/10/17 08:25 Dose: 40 mg Paroxetine HCl (Paxil) 20 mg PO DAILY [facility] Last Admin: 09/10/17 08:24 Dose: 20 mg Pioglitazone HCl (Actos) 15 mg PO DAILY [facility] Last Admin: 09/10/17 08:24 Dose: 15 mg Saccharomyces Boulardii (Florastor) 250 mg PO DAILY [facility] Last Admin: 09/10/17 08:25 Dose: 250 mg Senna (Senokot) 2 tab PO HSPRN PRN PRN Reason: Constipation Sodium Chloride ([place] Nasal [place] 0.65%) 0 ml EA NARE QIDPRN PRN PRN Reason: Nasal Congestion Sodium Chloride (Flush - Normal Saline) 10 ml IVF Q12HR [facility] Last Admin: 09/10/17 08:25 Dose: 10 ml Sodium Chloride (Flush - Normal Saline) 10 ml IVF PRN PRN PRN Reason: Saline Flush Tramadol HCl (Ultram) 50 mg PO Q6H PRN PRN Reason: Pain Tramadol HCl (Ultram) 100 mg PO Q6H PRN PRN Reason: Pain Last Admin: 09/09/17 18:18 Dose: 100 mg Zolpidem Tartrate (Ambien) 5 mg PO HSPRN PRN PRN Reason: Insomnia Last Admin: 09/08/17 20:27 Dose: 5 mg
[2017-09-10 11:40] VITALS: BP 147/68; TEMP 97.9
--- NOTE | 2017-09-10 12:55 | DIS ---
DATE OF ADMISSION: 09/06/2017 DATE OF DISCHARGE: 09/10/2017 PRIMARY CARE PHYSICIAN: [facility]. DISCHARGE DISPOSITION: Home. PRIMARY DISCHARGE DIAGNOSES: 1. Left great toe cellulitis with dry gangrene. 2. Severe peripheral vascular disease, status post femoral popliteal bypass surgery on the left pablo e. 3. Hypokalemia, hyponatremia, corrected. SECONDARY DISCHARGE DIAGNOSES: Right below-knee amputation, peripheral vascular disease, diabetes t ype 2, hypertension, dyslipidemia, gastroesophageal reflux disease, diabetic neuropathy, anxiety and depression. PRIMARY PROCEDURE/OPERATION: Left femoral popliteal bypass surgery. RADIOLOGICAL INVESTIGATION: CT angiography, aortogram runoff, foot x-ray, lower extremity MRI. Art t x-ray did not show any osteomyelitis. MRI was also negative for any osteomyelitis. CT angiograph y showed significant vascular problem on the left side as well. SIGNIFICANT LABORATORY DATA: WBC 8.2, hemoglobin 9.3, and platelets 237. Sodium 132, potassium 3.2 , BUN 7, creatinine 0.70, calcium 8.1. LFT normal. Urinalysis normal. Blood culture negative. DISCHARGE MEDICATIONS: Augmentin 875 mg p.o. b.i.d. for 7 more days, ferrous sulfate 1 tablet p.o. t.i.d., gabapentin 300 mg p.o. at bedtime, Harper 1 tab q.4 hourly p.r.n., lisinopril 20 mg p.o. b.i. d., Paxil 20 mg p.o. daily, Protonix 40 mg p.o. daily, Actos 15 mg p.o. daily, and Glucophage 1000 m g p.o. b.i.d. CONTRAINDICATIONS: None. CODE STATUS: FULL CODE. INPATIENT CONSULTANTS: Dr. Jean was consulted who recommended to do vascular study and subsequent ly Dr. Bowen was consulted who did aortofemoral bypass surgery. Both surgeons did not recommend any surgical interventions during this admission for his left great toe. TEST RESULTS PENDING ON DISCHARGE: None. ALLERGIES: No known drug allergy. DISCHARGE PLAN: Patient is advised to follow up with primary care physician as well as Dr. Andrew Bowen in 2 weeks. HOSPITAL COURSE: A 72-year-old male with the above mentioned medical problem who was admitted by ri on 09/06/2017. This patient was brought to emergency room for left great toe cellulitis. He was a lso having dry gangrenous changes on the tip of the left great toe. This patient was admitted to medical floor. He was treated with vancomycin and Zosyn while in [facility]. His cultures remain negative. I consulted Dr. Jean and Dr. Jean recommended to consult CT surgeon for vascular evaluation. Dr. Andrew Bowen was consulted and he recommended CT angiography, which was done, which showed sign ificant vascular abnormality on the left side. Patient underwent left femoropopliteal bypass for re vascularization. Post-operation, patient was transferred to surgical floor and observed. Today, the patient is seen by Dr. Andrew Bowen and he cleared him for discharge and he will follow up with the patient as an outpatient basis. Dr. Jean also did MRI and that was negative for any osteomyelitis and he did not recommend any int ervention. At this point, this patient has dry gangrene of the tip of the left great toe and cellulitis part john s significantly improved. On discharge, we changed to p.o. Augmentin for another 7 days. The patient remained hemodynamically stable. Plan of care discussed with the family member. The patient is seen and examined at bedside today. Total time spent on discharge day more than 30 minutes.
--- NOTE | 2017-09-10 17:39 | PRG ---
DATE OF SERVICE: 09/10/2017 SUBJECTIVE: Mr. Post is status post fem-pop bypass. He has an ischemic foot, but hopefully th is has improved with revascularization. I will see him in the office in the next few weeks. There is no indication for surgical intervention of his foot at this time. He will follow up with Dr. Ravindra menjivar.
== END 2017-09-10 16:27 | disposition home or self-care (01) | DRG 253 ==
LOC: ERS 09:52 → ONC 15:01 → ERS 16:04 → SURG A 09-09 09:23
PROVIDERS: ADMIT Internal Medicine; ATTEND Thoracic Surgery (Cardiothoracic Vascular Surgery)
PROC: 041L0JL Bypass Left Femoral Artery to Popliteal Artery with Synthetic Substitute, Open Approach (ICD-10-PCS; principal; 2017-09-09)
PROC: 06BQ4ZZ Excision of Left Saphenous Vein, Percutaneous Endoscopic Approach (ICD-10-PCS; 2017-09-09)
DX: I70.262 Atherosclerosis of native arteries of extremities with gangrene, left leg (principal); I70.92 Chronic total occlusion of artery of the extremities; E11.40 Type 2 diabetes mellitus with diabetic neuropathy, unspecified; E87.1 Hypo-osmolality and hyponatremia; L03.032 Cellulitis of left toe; E87.6 Hypokalemia; Z95.820 Peripheral vascular angioplasty status with implants and grafts; Z23 Encounter for immunization; Z89.511 Acquired absence of right leg below knee; F41.9 Anxiety disorder, unspecified; F32.9 Major depressive disorder, single episode, unspecified; K21.9 Gastro-esophageal reflux disease without esophagitis; I10 Essential (primary) hypertension; Z87.891 Personal history of nicotine dependence; E78.00 Pure hypercholesterolemia, unspecified
CPT/HCPCS: 36415; 36416; 75635; 80048; 80053; 80202; 81003; 83036; 83605; 85025; 85652; 86140; 87040; 90471; 90682; 90732; 93005; 96365; 96367; A4216; A9579; G0008; G0009; J0360; J1642; J1644; J1815; J2405; J2543; J2704; J2720; J3010; J3370; J7050; Q2036

== ENCOUNTER 2017-12-24 11:29 | Inpatient (IN) | payer MEDICAID, SELFPAY ==
[2017-12-24 12:01] LABS: #Eosinphils 0.2 thou/uL (0.0-0.7); #Monocytes 0.3 thou/uL (0.11-0.59); #Neutrophils 4.7 thou/uL (1.40-6.50); %Basophils 0.6 % (0.0-1.0); %Eosinophils 3.5 % (0.0-10.0); %Lymphocytes 15.5 % (21.0-51.0); %Monocytes 5.3 % (0.0-10.0); %Neutrophils 75.2 % (42.0-75.0); Mean Corpuscular HGB CONC 32.2 g/dL (32.0-36.0); Mean Corpuscular Hemoglobin 28.6 pg (27.0-31.0); Mean Corpuscular Volume 88.8 fl (80.0-94.0); Mean Platelet Volume 8.1 fL (7.4-10.4); Platelet Count 225 thou/uL (130-400); RBC Distribution Width 15.1 % (11.5-14.5); White Blood Cell (WBC) Count 6.3 thou/uL (4.8-10.8)
--- NOTE | 2017-12-24 12:15 | RAD ---
LEFT FOOT 3 VIEWS: HISTORY: Wound care abscess. COMPARISON: Foot radiographs 2017. FINDINGS: There is erosion distal phalanx great toe with extensive soft tissue edema and loss of overlying norm al soft tissues. There are also erosions of the proximal phalanx head and neck of the great toe. Th e bones are osteopenic. Old injury to the 5th metatarsal neck. There is extensive edema in the interspace in the 1st and 2nd metatarsal heads. IMPRESSION: 1. Osteomyelitis great toe distal phalanx and proximal phalanx with septic arthritic of interphalang eal joint. 2. Extensive edema and fullness of the soft tissues between the 1st and 2nd metatarsal heads may ref lect an underlying abscess. POS: CRESCENCIO
[2017-12-24 12:25] LABS: ALT (SGPT) Less than 7 U/L (8-55); AST (SGOT) 11 U/L (5-34); Albumin 3.9 g/dL (3.4-4.8); Alkaline Phosphatase 129 U/L (40-150); Anion Gap 12 mmol/L (10-20); BUN (Urea Nitrogen) 13 mg/dL (8.4-25.7); Bilirubin, Total 0.3 mg/dL (0.2-1.2); Calc. Creatinine Clearance 0 mL/min (70-130); Calcium 9.6 mg/dL (7.8-10.44); Carbon Dioxide 25 mmol/L (23-31); Chloride 98 mmol/L (98-107); Estimated GFR-MDRD Greater than 90; Globulin 3.8 g/dL (2.4-3.5); Glucose 290 mg/dL (80-115); Potassium 4.3 mmol/L (3.5-5.1); Protein, Total 7.7 g/dL (5.8-8.1); Sodium 131 mmol/L (136-145)
[2017-12-24] MEDS ORDERED: cefTRIAXone\\ROCEPHIN 2 GM in Sodium Chloride 0.9% 100 ML IVPB SCH (13:45)
--- NOTE | 2017-12-24 14:27 | HP ---
PRIMARY CARE PHYSICIAN: [facility]. CHIEF COMPLAINT: Draining toe infection. HISTORY OF PRESENT ILLNESS: This is a 72-year-old male seen here in 08/2017 with an ischemi c left toe. The patient was evaluated by Dr. Jean and by Dr. Bowen. He had a bypass done for his left lower extremity circulation and he was discharged with wound care. He has been following up for that and was seen today in the clinic and told to come to the hospital because it was starting to dr matt bowers. The patient reports some pain in the left great toe, but no other complaints. The x-ray do ne in the emergency room showed osteomyelitis of the great toe, septic arthritis of the interphalange al joint, and extensive edema and fullness of the soft tissues between the first and second metatarsa ls suspicious for an abscess, so he is being admitted for surgical consultation. PAST MEDICAL HISTORY: 1. Diabetes mellitus type 2, on oral hypoglycemics. 2. Hypertension. 3. Dyslipidemia. 4. Peripheral vascular disease. 5. Gastroesophageal reflux disease. 6. Diabetic neuropathy. PAST SURGICAL HISTORY: 1. Right rdjwj-djj-rbab amputation in 02/2017. 2. Right ubmqx-uob-jyud amputation done in 05/2017. 3. Angiography with revascularization in 04/2017. 4. Femoral popliteal bypass surgery on the left in 08/2017. SOCIAL HISTORY: The patient is and lives at home with his family. He previously smoked half pack of cigarettes per day, but stopped in 03/2017. No alcohol or illicit drug use. The patient is Yi-speaking only. FAMILY HISTORY: No strong family history of coronary artery disease, stroke or cancer. ALLERGIES: No known drug allergies. CURRENT MEDICATIONS: 1. Atorvastatin 40 mg daily. 2. Gabapentin 300 mg daily. 3. Glipizide 10 mg daily. 4. Lisinopril 20 mg daily. 5. Metformin 1000 mg twice a day. 6. Protonix 40 mg daily. 7. Paroxetine 20 mg daily. 8. Ferrous sulfate 325 mg daily. 9. Tramadol as needed for pain. REVIEW OF SYSTEMS: CONSTITUTIONAL: No fevers, no chills. EYES: No double vision or blurred vision. ENT: No congestion, drainage or sore throat. CARDIOVASCULAR: No chest pain, no palpitations, no racing heart. PULMONARY: He has had a little bit of a cough on and off, nonproductive. No difficulty breathing or wheezing. GASTROINTESTINAL: No abdominal pain, no nausea or vomiting, no constipation. He has had a little bi t of diarrhea 1-2 times a day. GENITOURINARY: No dysuria or hematuria. NEUROLOGIC: See HPI. SKIN: See HPI. He also was noted to have a skin tear on his left forearm in the ER. NEUROLOGIC: He has loss of sensation in his lower extremity and pain from peripheral neuropathy. PHYSICAL EXAMINATION: VITAL SIGNS: Blood pressure 175/70, pulse 72, respirations 16, O2 sat 97% on room air. Pain 2 out o f 10. Temperature 98.7. GENERAL: This is a well-developed male, in no apparent distress. HEENT: Pupils equal, round, and reactive to light. Extraocular movements intact. Oropharynx is alfredo ar without lesions, erythema or exudate. NECK: Supple, no lymphadenopathy, no thyroid nodules or enlargement, no JVD. HEART: Regular rate and rhythm. No murmurs, rubs or gallops. LUNGS: Clear to auscultation bilaterally. No wheezes, crackles or rhonchi. ABDOMEN: Soft, nontender to palpation, normoactive bowel sounds. No hepatosplenomegaly or other mas ses. EXTREMITIES: The patient has right qbjwk-vsa-vemy amputation. His left foot has decreased pulses in the foot, though I am able to palpate them. He has a large swollen left great toe with some minimal erythema just proximal to it. Mild tenderness to palpation with deep palpation of this area and mos tly loss of sensation here and large ulceration on the distal part of the toe. SKIN: See extremity exam. The patient also has a nonbloody skin tear on the right forearm with the loss of some of the epidermis, some exposed subcutaneous tissue. No bleeding. No evidence of infect ion. It is well cleaned currently. No other skin lesions noted. NEUROLOGICAL: The patient is able to move his left lower extremity and bilateral upper extremities w ith good strength. He has no facial droop. He does have loss of sensation into his left lower extre mity. LABORATORY DATA: CBC with a normal white blood cell count, hemoglobin is 12, hematocrit 37.3. Compl ete metabolic panel notable for a sodium of 131, glucose of 290 and the remainder is normal. Lactic acid was negative 1.3. X-ray: See HPI for foot x-ray results. ASSESSMENT: 1. Diabetic foot infection of left great toe with resulting osteomyelitis and septic interphalangeal joint and possible abscess. The patient has been given antibiotics in the emergency room. We will continue the IV antibiotics in the hospital. We will also go ahead and culture the wound on the foot . I have talked to Dr. Jean and he will see the patient. For now, we will keep patient n.p.o. He has not had anything to eat or drink since 11 o'clock this morning. He will likely need at least a partial amputation. 2. Diabetes mellitus type 2. Resume patient's home medications, put him on a sliding scale as neede d. 3. Hypertension. Resume home medications. 4. Hypercholesterolemia. Resume home medications. 5. Gastrointestinal prophylaxis. Put patient on his home Protonix. 6. Deep venous thrombosis prophylaxis. We will hold Lovenox for now, uncertain when Dr. Jean to d o surgery. 7. Code status: The patient is FULL CODE. His would be his medical decision maker and she is at the bedside.
[2017-12-24] MEDS ORDERED: Acetaminophen 325 MG TAB PO PRN (16:00)
[2017-12-24] MEDS ORDERED: Acetaminophen 650 MG Suppository PR PRN (16:00)
[2017-12-24] MEDS ORDERED: Ondansetron ODT 4 MG TAB PO PRN (16:00)
[2017-12-24] MEDS ORDERED: Dextrose 50% Abboject 50 ML SYRINGE SLOW IVP PRN (16:00)
[2017-12-24] MEDS ORDERED: Ondansetron HCl/PF 4 MG/2 ML Vial IVP PRN (16:00)
[2017-12-24] MEDS ORDERED: HumaLOG 300 UNITS/3 ML VIAL SC PRN (16:00)
[2017-12-24] MEDS ORDERED: Bisacodyl 5 MG TAB PO PRN (16:00)
[2017-12-24] MEDS ORDERED: Guaifenesin DM 100-10/5 ML UDCUP PO PRN (16:00)
[2017-12-24] MEDS ORDERED: Dextrose 5% in Water 1,000 ML IV PRN (16:00)
[2017-12-24 16:28] VITALS: BMI 18.6
[2017-12-24] MEDS: Sodium Chloride 0.9% 1,000 ML IV SCH (17:33)
[2017-12-24] MEDS: Ferrous Fumarate 324 MG TAB PO SCH ×2 (17:33→21:00)
[2017-12-24] MEDS: metFORMIN 500 MG TAB PO SCH (17:33)
--- NOTE | 2017-12-24 17:49 | CON ---
DATE OF CONSULT: 12/24/2017 HISTORY OF PRESENT ILLNESS: Mr. Kana Post is a 72-year-old male patient who will be admitted today to the Hospitalist Service for osteomyelitis, diabetic infection, left great toe. He has had a previous right lowmd-kqd-ckup amputation, ambulates with a walker. He does not have a prosthesis. He presents with ulceration of his left great toe with medial ulceration extending into the bone and plantar lateral wound extending to the bone. He ate a full breakfast or lunch at 11:00 a.m. He has been afebrile. X-rays of the left foot reveals osteomyelitis of the distal phalanx and proximal and some edema, fullness of the soft tissues near the first and second metatarsals that may reflect an ab scess, although clinically this skin and tissues in this area looked normal. PAST SURGICAL HISTORY: On 04/21/2017, Dr. Ace Barillas performed an EGD and colonoscopy with control o f hemorrhage from a large ulceration in the antrum. On 04/26/2017, the patient underwent right below -the-knee amputation for PAD after placement of aortoiliac stents by Dr. Bowen; he occluded distal ri t superficial femoral artery. On 09/09/2017, Dr. Bowen performed a left femoral to above the knee popliteal artery bypass using an 8 mm ringed [place] graft. BKA right leg on 04/26/2017 and right A KA 05/26/2017. PAST MEDICAL HISTORY: Diabetes mellitus type 2, hypertension, dyslipidemia, PAD, tobacco cessation 0 05/2017, history of GERD and diabetic neuropathy. ALCOHOL: None. MEDICATIONS: Glipizide 10 mg twice a day, metformin 1000 mg twice a day, pioglitazone 30 mg once a d ay, paroxetine 20 mg once a day, atorvastatin 40 mg once a day, gabapentin 300 mg at bedtime, ferrous sulfate 325 mg twice daily, lisinopril 20 mg a day, Protonix 40 mg a day, tramadol p.r.n. and Augmen tin. PHYSICAL EXAMINATION: HEENT: Unremarkable. LUNGS: Clear to auscultation. CARDIAC: Regular rate and rhythm without murmur or gallop. ABDOMEN: Soft and nontender. EXTREMITIES: Right AKA amputation, scar from left fem-pop bypass, hair over his left great toe dorsu m, open wounds medial left great toe communicating to the phalanx, medial wound great toe communicate d to the phalanx. Proximal foot looks normal. LABORATORY DATA: White count 6, hemoglobin 12. Sodium 131, BUN 13, 0.79 creatinine and 290 glucose. ASSESSMENT AND PLAN: 1. Diabetic osteomyelitis with history of peripheral artery disease, status post left femoral-poplit eal bypass, Dr. Bowen and placement of an aortoiliac stents prior to that. We will plan amputation o f left great toe Wednesday. We will admit for intravenous antibiotics. 2. Type 2 diabetes mellitus. 3. History of tobacco abuse. Tobacco cessation use 05/2017. 4. Peripheral artery disease. 5. Diabetes mellitus. 6. Status post right above-knee amputation.
[2017-12-24] MEDS: HYDROcodone/Acetaminophen 10/325 mg Tablet PO PRN (20:56)
[2017-12-24] MEDS: Atorvastatin Calcium 40 MG TAB PO SCH (20:56)
[2017-12-24] MEDS: Lisinopril 20 MG TAB PO SCH (20:57)
[2017-12-24] MEDS: Gabapentin 300 MG CAP PO SCH (20:57)
[2017-12-24] MEDS: Docusate 100 MG CAP PO SCH (21:00)
[2017-12-25] MEDS: Vancomycin HCl 1 GM in Premix Bag 1 BAG IVPB SCH ×2 (00:36→12:31)
[2017-12-25 04:12] LABS: #Eosinphils 0.3 thou/uL (0.0-0.7); #Lymphocytes 1.7 thou/uL (1.20-3.40); #Monocytes 0.5 thou/uL (0.11-0.59); #Neutrophils 3.5 thou/uL (1.40-6.50); %Basophils 0.3 % (0.0-1.0); %Eosinophils 5.4 % (0.0-10.0); %Neutrophils 58.3 % (42.0-75.0); Hemoglobin 10.7 g/dL (14.0-18.0); Mean Corpuscular HGB CONC 33.3 g/dL (32.0-36.0); Mean Corpuscular Hemoglobin 29.4 pg (27.0-31.0); Mean Corpuscular Volume 88.1 fl (80.0-94.0); Mean Platelet Volume 8.1 fL (7.4-10.4); Platelet Count 198 thou/uL (130-400); RBC Distribution Width 14.9 % (11.5-14.5); Red Blood Cell (RBC) Count 3.63 mill/uL (4.70-6.10); White Blood Cell (WBC) Count 5.9 thou/uL (4.8-10.8)
[2017-12-25 04:23] LABS: Anion Gap 13 mmol/L (10-20); BUN (Urea Nitrogen) 13 mg/dL (8.4-25.7); Calc. Creatinine Clearance 76 mL/min (70-130); Calcium 8.9 mg/dL (7.8-10.44); Carbon Dioxide 25 mmol/L (23-31); Chloride 101 mmol/L (98-107); Estimated GFR-MDRD Greater than 90; Glucose 112 mg/dL (80-115); Potassium 4.2 mmol/L (3.5-5.1); Sodium 135 mmol/L (136-145)
[2017-12-25] MEDS: Aspirin 325 mg Enteric Coated Tablet PO SCH (08:21)
[2017-12-25] MEDS: Docusate 100 MG CAP PO SCH ×2 (08:22→20:45)
[2017-12-25] MEDS: PARoxetine 20 MG TAB PO SCH (08:23)
[2017-12-25] MEDS: Pioglitazone HCl 15 MG TAB PO SCH (08:23)
[2017-12-25] MEDS: Lisinopril 20 MG TAB PO SCH ×2 (08:23→20:44)
[2017-12-25] MEDS: metFORMIN 500 MG TAB PO SCH ×2 (08:23→17:57)
[2017-12-25] MEDS: HYDROcodone/Acetaminophen 10/325 mg Tablet PO PRN (08:24)
[2017-12-25] MEDS: Ferrous Fumarate 324 MG TAB PO SCH ×3 (08:24→20:44)
[2017-12-25] MEDS: Sodium Chloride 0.9% 1,000 ML IV SCH (08:25)
[2017-12-25] MEDS ORDERED: cefTRIAXone\\ROCEPHIN 2 GM in Sodium Chloride 0.9% 100 ML IVPB SCH (15:00)
--- NOTE | 2017-12-25 15:39 | PDOC.PN ---
- Subjective Encounter Start Date: 12/25/17 Encounter Start Time: 13:00 CC; left jasbir toe wound sub: Pt says he feels better - Objective Resuscitation Status: Resuscitation Status FULL:Full Resuscitation Vital Signs & Weight: Vital Signs (12 hours) Temp Pulse Resp BP BP Pulse Ox 12/25/17 08:23 166/71 H 12/25/17 08:00 98.9 F 91 16 166/71 H 96 12/25/17 04:00 97.7 F 74 16 154/70 H 98 Weight Admit Weight 119 lb 0.794 oz Weight 119 lb 0.794 oz I&O: 12/24/17 12/25/17 12/26/17 06:59 06:59 06:59 Intake Total 360 Balance 360 Result Diagrams: 12/25/17 03:31 12/25/17 03:31 Additional Labs: Accuchecks 12/25/17 12/25/17 12/24/17 11:24 04:38 16:18 POC Glucose 135 H 133 H 125 H Phys Exam - Physical Examination Constitutional: NAD HEENT: moist MMs Neck: no JVD Respiratory: no wheezing, no rales, no rhonchi Cardiovascular: RRR, no significant murmur, no rub Gastrointestinal: soft, non-tender, positive bowel sounds left great toe positive swelling Neurological: non-focal Psychiatric: normal affect, A&O x 3 Dx/Plan - Plan Pt is 72 yrs old male now admitted to hospital due to left great toe osteomyelitis 1. Left great toe osteomyelitis: Continue iv antibiotcis will switch to IV zosyn 4.5 gms q6hrs OR probably mondary Continue wound care. 2. HTN: Monitor bp closely continue bp meds. 3. DM type 2: We will monitor blood sugars closely Continue insulin sliding scale. 4. Pain: PRN pain med.s 5. PVD: Continue home meds Case d/w pt
[2017-12-25] MEDS: Gabapentin 300 MG CAP PO SCH (20:45)
[2017-12-25] MEDS: Atorvastatin Calcium 40 MG TAB PO SCH (20:45)
[2017-12-25] MEDS: Piperacillin/Tazobactam 4.5 GM in Sodium Chloride 0.9% 100 ML IVPB SCH (22:48)
[2017-12-26] MEDS: Sodium Chloride 0.9% 1,000 ML IV SCH ×3 (01:40→21:24)
[2017-12-26] MEDS: Vancomycin HCl 1 GM in Premix Bag 1 BAG IVPB SCH (01:40)
[2017-12-26] MEDS ORDERED: VANCOMYCIN IVPB PRN (02:49)
[2017-12-26] MEDS: Piperacillin/Tazobactam 4.5 GM in Sodium Chloride 0.9% 100 ML IVPB SCH ×3 (06:35→20:56)
[2017-12-26] MEDS: Aspirin 325 mg Enteric Coated Tablet PO SCH (09:09)
[2017-12-26] MEDS: PARoxetine 20 MG TAB PO SCH (09:09)
[2017-12-26] MEDS: metFORMIN 500 MG TAB PO SCH ×2 (09:09→16:18)
[2017-12-26] MEDS: Docusate 100 MG CAP PO SCH ×2 (09:10→20:56)
[2017-12-26] MEDS: Lisinopril 20 MG TAB PO SCH ×2 (09:10→20:55)
[2017-12-26] MEDS: Pioglitazone HCl 15 MG TAB PO SCH (09:10)
[2017-12-26] MEDS: Ferrous Fumarate 324 MG TAB PO SCH ×3 (09:10→20:56)
--- NOTE | 2017-12-26 10:30 | PDOC.PN ---
- Subjective Encounter Start Date: 12/26/17 Encounter Start Time: 15:32 CC: toe infection sub: pt is scheduled for surgery in am. denies any pain - Objective Resuscitation Status: Resuscitation Status FULL:Full Resuscitation Vital Signs & Weight: Vital Signs (12 hours) Temp Pulse Resp BP Pulse Ox 12/26/17 08:00 98.1 F 65 16 172/63 H 95 Weight Admit Weight 119 lb 0.794 oz Weight 119 lb 0.794 oz I&O: 12/25/17 12/26/17 12/27/17 06:59 06:59 06:59 Intake Total 800 Balance 800 Result Diagrams: 12/26/17 10:51 12/26/17 10:51 Additional Labs: Accuchecks 12/26/17 12/25/17 12/25/17 06:37 20:07 16:33 POC Glucose 136 H 240 H 110 12/25/17 11:24 POC Glucose 135 H Dx/Plan - Plan Physical Examination Constitutional: NAD, sitting on bed HEENT: moist MMs Neck: no JVD Respiratory: no wheezing, no rales, no rhonchi, normal effort Cardiovascular: RRR, no significant murmur, no rub Gastrointestinal: soft, non-tender, positive bowel sounds Musculoskeletal: left great toe positive swelling, positive dressing Neurological: non-focal Psychiatric: normal affect, A&O x 3 Dx/Plan Pt is 72 yrs old male now admitted to hospital due to left great toe osteomyelitis 1. Left great toe osteomyelitis: Continue iv antibiotcis continue IV zosyn 4.5 gms q8hrs and vancomycin 1gm q12hrs OR on wednesday Continue wound care. 2. HTN: Monitor bp closely continue bp meds. 3. DM type 2: continue blood sugars closely Continue insulin sliding scale. 4. Pain: PRN pain meds 5. PVD: Continue home meds Case d/w pt
[2017-12-26] MEDS: Vancomycin HCl 750 MG in Sodium Chloride 0.9% 250 ML 250 ML IVPB SCH ×2 (10:35→17:58)
[2017-12-26 11:00] LABS: #Eosinphils 0.2 thou/uL (0.0-0.7); #Monocytes 0.5 thou/uL (0.11-0.59); #Neutrophils 4.1 thou/uL (1.40-6.50); %Basophils 0.3 % (0.0-1.0); %Eosinophils 3.8 % (0.0-10.0); %Lymphocytes 17.7 % (21.0-51.0); %Monocytes 7.8 % (0.0-10.0); %Neutrophils 70.4 % (42.0-75.0); Hemoglobin 10.3 g/dL (14.0-18.0); Mean Corpuscular HGB CONC 32.3 g/dL (32.0-36.0); Mean Corpuscular Hemoglobin 28.6 pg (27.0-31.0); Mean Corpuscular Volume 88.8 fl (80.0-94.0); Mean Platelet Volume 7.6 fL (7.4-10.4); Platelet Count 207 thou/uL (130-400); RBC Distribution Width 14.9 % (11.5-14.5); Red Blood Cell (RBC) Count 3.61 mill/uL (4.70-6.10); White Blood Cell (WBC) Count 5.8 thou/uL (4.8-10.8)
[2017-12-26 11:22] LABS: Anion Gap 11 mmol/L (10-20); BUN (Urea Nitrogen) 10 mg/dL (8.4-25.7); Calc. Creatinine Clearance 66 mL/min (70-130); Calcium 8.6 mg/dL (7.8-10.44); Carbon Dioxide 28 mmol/L (23-31); Chloride 100 mmol/L (98-107); Estimated GFR-MDRD Greater than 90; Glucose 239 mg/dL (80-115); Potassium 3.5 mmol/L (3.5-5.1); Sodium 135 mmol/L (136-145)
[2017-12-26] MEDS: Gabapentin 300 MG CAP PO SCH (20:55)
[2017-12-26] MEDS: Atorvastatin Calcium 40 MG TAB PO SCH (20:56)
[2017-12-26] MEDS: HYDROcodone/Acetaminophen 10/325 mg Tablet PO PRN (20:58)
[2017-12-27 01:33] LABS: Vancomycin, Trough 21.1 ug/mL
[2017-12-27] MEDS: Vancomycin HCl 750 MG in Sodium Chloride 0.9% 250 ML 250 ML IVPB SCH ×3 (02:33→18:12)
[2017-12-27 03:41] LABS: #Eosinphils 0.3 thou/uL (0.0-0.7); #Lymphocytes 1.7 thou/uL (1.20-3.40); #Monocytes 0.4 thou/uL (0.11-0.59); %Basophils 0.7 % (0.0-1.0); %Eosinophils 5.4 % (0.0-10.0); %Lymphocytes 25.6 % (21.0-51.0); %Monocytes 6.2 % (0.0-10.0); %Neutrophils 62.1 % (42.0-75.0); Hemoglobin 10.1 g/dL (14.0-18.0); Mean Corpuscular HGB CONC 34.2 g/dL (32.0-36.0); Mean Platelet Volume 8.3 fL (7.4-10.4); Platelet Count 203 thou/uL (130-400); RBC Distribution Width 14.6 % (11.5-14.5); Red Blood Cell (RBC) Count 3.35 mill/uL (4.70-6.10); White Blood Cell (WBC) Count 6.5 thou/uL (4.8-10.8)
[2017-12-27 03:55] LABS: Anion Gap 15 mmol/L (10-20); BUN (Urea Nitrogen) 13 mg/dL (8.4-25.7); Calc. Creatinine Clearance 64 mL/min (70-130); Calcium 8.4 mg/dL (7.8-10.44); Carbon Dioxide 23 mmol/L (23-31); Chloride 102 mmol/L (98-107); Estimated GFR-MDRD Greater than 90; Glucose 128 mg/dL (80-115); Potassium 3.5 mmol/L (3.5-5.1); Sodium 136 mmol/L (136-145)
[2017-12-27] MEDS: Piperacillin/Tazobactam 4.5 GM in Sodium Chloride 0.9% 100 ML IVPB SCH ×3 (05:30→20:26)
[2017-12-27] MEDS: metFORMIN 500 MG TAB PO SCH ×2 (09:25→17:25)
[2017-12-27] MEDS: Aspirin 325 mg Enteric Coated Tablet PO SCH (09:25)
[2017-12-27] MEDS: Docusate 100 MG CAP PO SCH ×2 (09:26→20:26)
[2017-12-27] MEDS: Ferrous Fumarate 324 MG TAB PO SCH ×3 (09:26→20:26)
[2017-12-27] MEDS: Sodium Chloride 0.9% 1,000 ML IV SCH ×2 (10:27→18:13)
[2017-12-27] MEDS ORDERED: hydrALAZINE 20 MG/ML VIAL SLOW IVP PRN (13:57)
--- NOTE | 2017-12-27 13:57 | PDOC.PN ---
- Subjective Encounter Start Date: 12/27/17 Encounter Start Time: 14:04 Subjective: No new complaints -: No acute events overnight -: Scheduled for OR today for L great toe amputation. - Objective Resuscitation Status: Resuscitation Status FULL:Full Resuscitation Vital Signs & Weight: Vital Signs (12 hours) Temp Pulse Resp BP Pulse Ox 12/27/17 08:00 97.8 F 68 18 180/82 H 97 Weight Admit Weight 119 lb 0.794 oz Weight 119 lb 0.794 oz I&O: 12/26/17 12/27/17 12/28/17 06:59 06:59 06:59 Intake Total 800 1260 Balance 800 1260 Result Diagrams: 12/27/17 00:59 12/27/17 00:59 Additional Labs: Accuchecks 12/27/17 12/26/17 12/26/17 05:30 20:09 17:06 POC Glucose 125 H 109 90 Phys Exam - Physical Examination Constitutional: NAD HEENT: PERRLA, moist MMs, sclera anicteric Neck: supple, full ROM Respiratory: no wheezing, no rales, no rhonchi, clear to auscultation bilateral Cardiovascular: RRR, no significant murmur, no rub Gastrointestinal: soft, non-tender, no distention, positive bowel sounds Musculoskeletal: no edema, pulses present (1+ b/l) Neurological: non-focal, moves all 4 limbs L great toe with seropurulent discharge Psychiatric: normal affect, A&O x 3 Skin: no rash, normal turgor Dx/Plan (1) Acute osteomyelitis of foot Code(s): M86.179 - OTHER ACUTE OSTEOMYELITIS, UNSPECIFIED ANKLE AND FOOT Status: Acute Comment: Involving great toe. On Vanc and Zosyn. For amputation 12/27/17 (2) Hypertension Code(s): I10 - ESSENTIAL (PRIMARY) HYPERTENSION Status: Chronic Qualifiers: Hypertension type: essential hypertension Qualified Code(s): I10 - Essential (primary) hypertension Plan: Start amlodipine 5 mg daily. Monitor BP Hydralazine PRN for SBP > 180 Comment: On Lisinopril. Not at goal so will start amlodipine (3) Peripheral arterial disease Code(s): I73.9 - PERIPHERAL VASCULAR DISEASE, UNSPECIFIED Status: Chronic Comment: Stable. Continue ASA and Statins. (4) DM type 2 (diabetes mellitus, type 2) Status: Chronic Qualifiers: Diabetes mellitus complication status: with neurologic complications Diabetes mellitus complication detail: with polyneuropathy Diabetes mellitus snf insulin use: without film cleaner use Qualified Code(s): E11.42 - Type 2 diabetes mellitus with diabetic polyneuropathy Plan: Continue current regimen. Comment: with diabetic neuropathy - Plan cont current plan of care, plan discussed w/ family, continue antibiotics, PT/OT , DVT proph w/lovenox PT/OT. Might need equipment for mobility prior to d/c * .
[2017-12-27] MEDS ORDERED: Ondansetron HCl/PF 4 MG/2 ML Vial ONE (15:23)
[2017-12-27] MEDS ORDERED: Lidocaine 1% PF 5 ML VIAL ONE (15:23)
[2017-12-27] MEDS ORDERED: PROPOFOL 200 MG/20 ML VIAL ONE (15:23)
[2017-12-27] MEDS ORDERED: Fentanyl 100 MCG/2 ML VIAL ONE (15:26)
[2017-12-27] MEDS ORDERED: Midazolam HCl 2 mg/2 ml Vial ONE (15:26)
[2017-12-27] MEDS ORDERED: Meperidine HCl/PF 25 MG/ML VIAL SLOW IVP PRN (16:04)
[2017-12-27] MEDS ORDERED: Morphine Sulfate 2 MG/ML SYRINGE SLOW IVP PRN (16:04)
[2017-12-27] MEDS ORDERED: Promethazine HCl 25 MG/ML VIAL SLOW IVP PRN (16:04)
[2017-12-27] MEDS ORDERED: Labetalol HCl 100 MG/20 ML VIAL ONE (16:32)
[2017-12-27] MEDS ORDERED: Labetalol HCl 100 MG/20 ML VIAL SLOW IVP PRN ×2 (16:51→16:52)
[2017-12-27] MEDS: Lisinopril 20 MG TAB PO SCH ×2 (17:25→20:25)
[2017-12-27] MEDS: HYDROcodone/Acetaminophen 10/325 mg Tablet PO PRN ×2 (17:25→22:40)
[2017-12-27] MEDS: Potassium Chloride 20 MEQ TAB PO SCH (17:25)
[2017-12-27] MEDS: Pioglitazone HCl 15 MG TAB PO SCH (17:26)
[2017-12-27] MEDS: PARoxetine 20 MG TAB PO SCH (17:26)
[2017-12-27] MEDS: Gabapentin 300 MG CAP PO SCH (20:25)
[2017-12-27] MEDS: Atorvastatin Calcium 40 MG TAB PO SCH (20:26)
[2017-12-28 01:30] LABS: Vancomycin, Trough 24.3 ug/mL
[2017-12-28 04:12] LABS: #Eosinphils 0.4 thou/uL (0.0-0.7); #Lymphocytes 1.6 thou/uL (1.20-3.40); #Monocytes 0.4 thou/uL (0.11-0.59); #Neutrophils 3.3 thou/uL (1.40-6.50); %Basophils 0.3 % (0.0-1.0); %Eosinophils 6.9 % (0.0-10.0); %Lymphocytes 27.7 % (21.0-51.0); %Monocytes 7.7 % (0.0-10.0); %Neutrophils 57.5 % (42.0-75.0); Hemoglobin 10.1 g/dL (14.0-18.0); Mean Corpuscular HGB CONC 32.7 g/dL (32.0-36.0); Mean Corpuscular Hemoglobin 28.9 pg (27.0-31.0); Mean Corpuscular Volume 88.1 fl (80.0-94.0); Mean Platelet Volume 7.7 fL (7.4-10.4); Platelet Count 198 thou/uL (130-400); RBC Distribution Width 14.6 % (11.5-14.5); White Blood Cell (WBC) Count 5.7 thou/uL (4.8-10.8)
[2017-12-28 04:26] LABS: Anion Gap 12 mmol/L (10-20); BUN (Urea Nitrogen) 8 mg/dL (8.4-25.7); Calc. Creatinine Clearance 67 mL/min (70-130); Calcium 8.4 mg/dL (7.8-10.44); Carbon Dioxide 27 mmol/L (23-31); Chloride 105 mmol/L (98-107); Estimated GFR-MDRD Greater than 90; Glucose 108 mg/dL (80-115); Potassium 3.6 mmol/L (3.5-5.1); Sodium 140 mmol/L (136-145)
[2017-12-28] MEDS: Piperacillin/Tazobactam 4.5 GM in Sodium Chloride 0.9% 100 ML IVPB SCH ×3 (05:30→23:21)
[2017-12-28] MEDS: Docusate 100 MG CAP PO SCH ×2 (08:11→20:04)
[2017-12-28] MEDS: metFORMIN 500 MG TAB PO SCH ×2 (08:11→16:37)
[2017-12-28] MEDS: Pioglitazone HCl 15 MG TAB PO SCH (08:11)
[2017-12-28] MEDS: Potassium Chloride 20 MEQ TAB PO SCH (08:12)
[2017-12-28] MEDS: Ferrous Fumarate 324 MG TAB PO SCH ×3 (08:14→20:04)
[2017-12-28] MEDS: Lisinopril 20 MG TAB PO SCH ×2 (08:18→20:05)
[2017-12-28] MEDS: Aspirin 325 mg Enteric Coated Tablet PO SCH (08:18)
[2017-12-28] MEDS: PARoxetine 20 MG TAB PO SCH (08:19)
[2017-12-28] MEDS: Vancomycin HCl 750 MG in Sodium Chloride 0.9% 250 ML 250 ML IVPB SCH ×2 (08:19→21:00)
[2017-12-28] MEDS: HYDROcodone/Acetaminophen 10/325 mg Tablet PO PRN ×3 (08:28→21:40)
--- NOTE | 2017-12-28 08:56 | OP ---
DATE OF PROCEDURE: 12/27/2017 PREOPERATIVE DIAGNOSES: Osteomyelitis, left great toe with previous [id number] amputation right with peripheral artery disease. The patient is status post 09/09/2017, Dr. Andrew Bowen, left femo ral to above the knee popliteal artery bypass graft PTFE now with osteomyelitis left great toe with o pen wounds. PROCEDURE: Amputation of left great toe through the proximal phalanx. Wound left open for healing b y secondary intention. Wound Care to place a wound VAC. SURGEON: Dr. Juan Jean ANESTHESIA: General LMA. PROCEDURE IN DETAIL: The patient was taken to the operating room where under general anesthesia, lef t lower extremity was prepared with Betadine, draped in routine fashion. Incision was made for amput ation of left great toe through the proximal phalanx, carried down through skin and subcutaneous tiss ue, excising the ulcerated skin open wounds of left great toe. Bone resected proximally with a ronge ur after transecting with a bone cutter. Good healthy bone was noted. Wound irrigated. Hemostasis gained with the cautery. Wound Care team arrived to place a wound VAC. The patient tolerated the pr ocedure well without complications.
[2017-12-28] MEDS ORDERED: Amlodipine 5 MG TAB PO SCH (09:00)
--- NOTE | 2017-12-28 10:59 | PDOC.PN ---
- Subjective Encounter Start Date: 12/28/17 Encounter Start Time: 10:57 Subjective: No new complaints. -: Had amputation L great toe yeserday. Tolerated well. -: NO acute events ovenight. - Objective Resuscitation Status: Resuscitation Status FULL:Full Resuscitation MAR Reviewed: Yes Vital Signs & Weight: Vital Signs (12 hours) Temp Pulse Resp BP BP Pulse Ox 12/28/17 08:19 70 147/89 H 12/28/17 08:18 147/89 H 12/28/17 08:00 98.4 F 70 16 147/89 H 99 12/28/17 07:47 98.4 F 70 16 195/72 H 99 12/28/17 04:00 98.5 F 65 18 171/65 H 95 Weight Admit Weight 119 lb 0.794 oz Weight 119 lb 0.794 oz I&O: 12/27/17 12/28/17 12/29/17 06:59 06:59 06:59 Intake Total 1260 1380 Balance 1260 1380 Result Diagrams: 12/28/17 03:45 12/28/17 03:45 Additional Labs: Accuchecks 12/28/17 12/27/17 12/27/17 05:30 20:26 17:12 POC Glucose 128 H 203 H 99 12/27/17 15:18 POC Glucose 99 Phys Exam - Physical Examination Constitutional: NAD HEENT: PERRLA, moist MMs, sclera anicteric Neck: supple, full ROM Respiratory: no wheezing, no rales, no rhonchi, clear to auscultation bilateral Cardiovascular: RRR, no significant murmur, no rub Gastrointestinal: soft, non-tender, no distention, positive bowel sounds Musculoskeletal: no edema, pulses present LLE covered in clean dry banages and attached to wound vac Neurological: non-focal, moves all 4 limbs Psychiatric: normal affect, A&O x 3 Skin: no rash, cap refill <2 seconds Dx/Plan (1) Acute osteomyelitis of foot Code(s): M86.179 - OTHER ACUTE OSTEOMYELITIS, UNSPECIFIED ANKLE AND FOOT Status: Acute Plan: Continue wound vac Continue abx for now. f/u cultures. Comment: s/p amputation L geat toe. On Vanc and Zosyn. (2) Hypertension Code(s): I10 - ESSENTIAL (PRIMARY) HYPERTENSION Status: Chronic Qualifiers: Hypertension type: essential hypertension Qualified Code(s): I10 - Essential (primary) hypertension Plan: INcease lisinopril to 40mg daily. Comment: On Lisinopril. (3) Peripheral arterial disease Code(s): I73.9 - PERIPHERAL VASCULAR DISEASE, UNSPECIFIED Status: Chronic Comment: Stable. Continue ASA and Statins. (4) DM type 2 (diabetes mellitus, type 2) Status: Chronic Qualifiers: Diabetes mellitus complication status: with neurologic complications Diabetes mellitus complication detail: with polyneuropathy Diabetes mellitus director long term care insulin use: without director long term care use Qualified Code(s): E11.42 - Type 2 diabetes mellitus with diabetic polyneuropathy Comment: with diabetic neuropathy - Plan cont current plan of care, plan discussed w/ family, continue antibiotics, PT/OT , DVT proph w/heparin COntinue abx for today -: PT/OT eval * .
[2017-12-28] MEDS: Sodium Chloride 0.9% 1,000 ML IV SCH (12:18)
[2017-12-28] MEDS: HumaLOG 300 UNITS/3 ML VIAL SC PRN (12:20)
--- NOTE | 2017-12-28 13:51 | PRG ---
DATE OF SERVICE: 01/07/2018 Kana Post is doing well today after amputation of his left great toe. Wound VAC in place. Po stop shoe has been ordered. From a surgical standpoint the patient can be discharged home in a day o r two on oral antibiotics once outpatient wound care is arranged. Wound care can be done as an outpa tient at [facility] W[facility] outpatient with a wound VAC or home health nursing for the patient's needs. He can weightbear as tolerated. I will see him in the office in 2-3 weeks. I will see him sooner as needed. Please call if necessary this hospitalization. He is stable to discharge from a surgical s [facility].
[2017-12-28] MEDS: Heparin 5,000 UNITS/ML VIAL SC SCH ×2 (14:52→20:05)
[2017-12-28] MEDS: Atorvastatin Calcium 40 MG TAB PO SCH (20:05)
[2017-12-28] MEDS: Gabapentin 300 MG CAP PO SCH (20:05)
[2017-12-29] MEDS: Piperacillin/Tazobactam 4.5 GM in Sodium Chloride 0.9% 100 ML IVPB SCH (05:19)
[2017-12-29] MEDS: Sodium Chloride 0.9% 1,000 ML IV SCH ×2 (05:20→15:59)
[2017-12-29 05:32] LABS: #Eosinphils 0.5 thou/uL (0.0-0.7); #Lymphocytes 1.5 thou/uL (1.20-3.40); #Monocytes 0.5 thou/uL (0.11-0.59); #Neutrophils 3.5 thou/uL (1.40-6.50); %Basophils 0.4 % (0.0-1.0); %Eosinophils 7.8 % (0.0-10.0); %Lymphocytes 25.5 % (21.0-51.0); %Monocytes 7.7 % (0.0-10.0); %Neutrophils 58.5 % (42.0-75.0); Anion Gap 11 mmol/L (10-20); BUN (Urea Nitrogen) 9 mg/dL (8.4-25.7); Calc. Creatinine Clearance 74 mL/min (70-130); Calcium 8.6 mg/dL (7.8-10.44); Carbon Dioxide 27 mmol/L (23-31); Chloride 104 mmol/L (98-107); Estimated GFR-MDRD Greater than 90; Glucose 130 mg/dL (80-115); Hemoglobin 9.7 g/dL (14.0-18.0); Mean Corpuscular HGB CONC 32.6 g/dL (32.0-36.0); Mean Corpuscular Hemoglobin 28.7 pg (27.0-31.0); Platelet Count 202 thou/uL (130-400); Potassium 3.7 mmol/L (3.5-5.1); RBC Distribution Width 14.7 % (11.5-14.5); Red Blood Cell (RBC) Count 3.38 mill/uL (4.70-6.10); Sodium 138 mmol/L (136-145); White Blood Cell (WBC) Count 5.9 thou/uL (4.8-10.8)
[2017-12-29 08:42] LABS: Vancomycin, Trough 16.2 ug/mL
[2017-12-29] MEDS: HYDROcodone/Acetaminophen 10/325 mg Tablet PO PRN ×3 (09:30→23:55)
[2017-12-29] MEDS: Lisinopril 20 MG TAB PO SCH ×2 (10:02→20:29)
[2017-12-29] MEDS: Pioglitazone HCl 15 MG TAB PO SCH (10:02)
[2017-12-29] MEDS: metFORMIN 500 MG TAB PO SCH ×2 (10:03→17:09)
[2017-12-29] MEDS: PARoxetine 20 MG TAB PO SCH (10:03)
[2017-12-29] MEDS: Heparin 5,000 UNITS/ML VIAL SC SCH ×3 (10:04→20:29)
[2017-12-29] MEDS: Ferrous Fumarate 324 MG TAB PO SCH ×3 (10:04→20:30)
[2017-12-29] MEDS: Docusate 100 MG CAP PO SCH ×2 (10:04→20:30)
[2017-12-29] MEDS: Aspirin 325 mg Enteric Coated Tablet PO SCH (10:04)
[2017-12-29] MEDS: Vancomycin HCl 750 MG in Sodium Chloride 0.9% 250 ML 250 ML IVPB SCH (10:05)
--- NOTE | 2017-12-29 10:25 | PDOC.PN ---
- Subjective Encounter Start Date: 12/29/17 Encounter Start Time: 10:23 Subjective: No complaints today. -: No acute events overnight. - Objective Resuscitation Status: Resuscitation Status FULL:Full Resuscitation MAR Reviewed: Yes Vital Signs & Weight: Vital Signs (12 hours) Temp Pulse Resp BP BP Pulse Ox 12/29/17 10:02 158/66 H 12/29/17 08:00 98.5 F 71 16 175/67 H 96 Weight Admit Weight 119 lb 0.794 oz Weight 119 lb 0.794 oz I&O: 12/28/17 12/29/17 12/30/17 06:59 06:59 06:59 Intake Total 1380 1300 Output Total 600 Balance 1380 700 Result Diagrams: 12/29/17 04:13 12/29/17 04:13 Additional Labs: Accuchecks 12/29/17 12/28/17 12/28/17 04:14 19:53 16:20 POC Glucose 129 H 135 H 131 H 12/28/17 11:16 POC Glucose 156 H Phys Exam - Physical Examination Constitutional: NAD HEENT: PERRLA, moist MMs, sclera anicteric, oral pharynx no lesions Neck: supple, full ROM Respiratory: no wheezing, no rales, no rhonchi, clear to auscultation bilateral Cardiovascular: RRR, no significant murmur, no rub Gastrointestinal: soft, non-tender, no distention, positive bowel sounds Musculoskeletal: no edema, pulses present (but reduced. L leg covered in dressing and attached to wound vac) Neurological: non-focal, moves all 4 limbs Psychiatric: normal affect, A&O x 3 Skin: no rash, normal turgor Dx/Plan (1) Acute osteomyelitis of foot Code(s): M86.179 - OTHER ACUTE OSTEOMYELITIS, UNSPECIFIED ANKLE AND FOOT Status: Acute Plan: Doing well post op. Boot has been arranged. Comment: s/p amputation L geat toe. On Vanc and Zosyn. (2) Hypertension Code(s): I10 - ESSENTIAL (PRIMARY) HYPERTENSION Status: Chronic Qualifiers: Hypertension type: essential hypertension Qualified Code(s): I10 - Essential (primary) hypertension Comment: On Lisinopril 40 mg BID. Not at goal so amlodipine added. (3) Peripheral arterial disease Code(s): I73.9 - PERIPHERAL VASCULAR DISEASE, UNSPECIFIED Status: Chronic Comment: Stable. Continue ASA and Statins. (4) DM type 2 (diabetes mellitus, type 2) Status: Chronic Qualifiers: Diabetes mellitus complication status: with neurologic complications Diabetes mellitus complication detail: with polyneuropathy Diabetes mellitus correction insulin use: without correction use Qualified Code(s): E11.42 - Type 2 diabetes mellitus with diabetic polyneuropathy Plan: At hospital goal of <180. Monitor. Comment: with diabetic neuropathy - Plan cont current plan of care, plan discussed w/ family, continue antibiotics, PT/OT , DVT proph w/heparin Home when outpatient wound vac is arranged, * .
[2017-12-29] MEDS: HumaLOG 300 UNITS/3 ML VIAL SC PRN (12:33)
[2017-12-29] MEDS: metroNIDAZOLE 500 MG TAB PO SCH ×2 (15:59→20:29)
[2017-12-29] MEDS: Gabapentin 300 MG CAP PO SCH (20:30)
[2017-12-29] MEDS: Atorvastatin Calcium 40 MG TAB PO SCH (20:30)
[2017-12-30] MEDS: Sodium Chloride 0.9% 1,000 ML IV SCH (05:30)
[2017-12-30] MEDS: Ferrous Fumarate 324 MG TAB PO SCH ×2 (07:55→15:46)
[2017-12-30] MEDS: Aspirin 325 mg Enteric Coated Tablet PO SCH (07:56)
[2017-12-30] MEDS: Pioglitazone HCl 15 MG TAB PO SCH (07:56)
[2017-12-30] MEDS: Heparin 5,000 UNITS/ML VIAL SC SCH ×3 (07:56→15:46)
[2017-12-30] MEDS: PARoxetine 20 MG TAB PO SCH (07:56)
[2017-12-30] MEDS: metFORMIN 500 MG TAB PO SCH ×2 (07:56→15:45)
[2017-12-30] MEDS: metroNIDAZOLE 500 MG TAB PO SCH ×2 (07:56→15:45)
[2017-12-30] MEDS: Docusate 100 MG CAP PO SCH (07:57)
[2017-12-30] MEDS: Lisinopril 20 MG TAB PO SCH (08:13)
[2017-12-30] MEDS: HYDROcodone/Acetaminophen 10/325 mg Tablet PO PRN ×2 (08:15→15:44)
[2017-12-30] MEDS ORDERED: Amlodipine 10 MG TAB PO SCH (09:00)
[2017-12-30] MEDS ORDERED: Amlodipine 5 MG TAB PO SCH (09:00)
[2017-12-30 16:57] VITALS: BP 184/73; TEMP 97.8
--- NOTE | 2017-12-30 23:03 | DIS ---
DATE OF ADMISSION: 12/24/2017 DATE OF DISCHARGE: 12/30/2017. DISCHARGE DIAGNOSIS: Acute osteomyelitis of the left foot, status post amputation of left great toe. SECONDARY DIAGNOSES: Type 2 diabetes mellitus, peripheral arterial disease, hypertension. CONDITION AT DISCHARGE: Stable and improved. HISTORY OF PRESENT ILLNESS: A 72-year-old male who presents to the hospital with pain in his left toe with purulent discharge. He had an x-ray done in the emergency room which showed osteomyelitis of the left great toe, septic arthritis of the interphalangeal joints and extensive edema and fullness of the soft tissues between the first and second metatarsal suspicious for an abscess. He had been seen in August of last year with an ischemic left toe. HOSPITAL COURSE: He was started on broad spectrum antibiotics and was eventually taken to the OR where he had an amputation of his great toe, his blood glucose was controlled by insulin and he had good response. Hospital stay was complicated by diarrhea which tested positive for Clostridium difficile antigen, and PCR testing which was positive. He was immediately started on p.o. metronidazole and diarrhea had resolved before discharge. He is to follow up with his primary care physician within 1 week of discharge. DISCHARGE MEDICATIONS: Amlodipine 5 mg daily, atorvastatin 40 mg at bedtime, ferrous sulfate 325 mg daily, gabapentin 300 mg at bedtime, glipizide 10 mg b.i.d., lisinopril 20 mg b.i.d., metformin 1000 mg b.i.d., metronidazole 500 mg t.i.d., pantoprazole 40 mg daily, paroxetine 20 mg daily, tramadol 50-100 mg q.8 hours p.r.n. for pain. PHYSICAL EXAMINATION: VITAL SIGNS: Blood pressure 135/64, respiratory rate 16, oxygen saturation 97% on room air, pulse 73, temperature 98.4. GENERAL: Not in acute distress, sitting comfortably in bed. HEENT: PERRLA, EOMI, not pale, anicteric. NECK: Supple, no lymphadenopathy, no JVD. LUNGS: Clear to auscultation bilaterally. No wheezes, rales or rhonchi. ABDOMEN: Soft, tender. Normoactive bowel sounds. No hepatosplenomegaly. EXTREMITIES: Right [id number] amputation. Left foot is on the lower one third of the leg covered in clean, dry dressing and attached to the wound VAC. NEUROLOGIC: Alert and oriented to time, place and person. No focal deficits. SKIN: Warm and well perfused. MUSCULOSKELETAL: Moving extremities spontaneously. No skeletal abnormalities. LABORATORY DATA: WBC 5.9, hemoglobin 9.7, platelets 202. Chemistry: Sodium 138, potassium 3.7, chloride 104, carbon dioxide 27, anion gap 11, BUN 9, creatinine 0.71, glucose 130. IMAGING: Foot x-ray done on admission, results as in HPI. CONDITION AT DISCHARGE: Stable and improved. PROCEDURE: Amputation of the left great toe. DIET: Diabetic and heart healthy. CARE GOALS: Patient is to follow up with his primary care physician within 1 day of discharge. He is also encouraged to use his wound VAC as recommended by Wound Care. He is to return to the emergency room if he develops fever, shortness of breath or if he has developed multiple episodes of diarrhea, dizziness or loss of consciousness. Activity to resume as tolerated. Discharge time 65 minutes including chart review and documentation. [facility]PITALJany
== END 2017-12-30 18:41 | disposition home or self-care (01) | DRG 617 ==
LOC: ERS 11:29 → T4-A 13:22
PROVIDERS: ADMIT Emergency Medicine; ATTEND Emergency Medicine
PROC: 0Y6Q0Z1 Detachment at Left 1st Toe, High, Open Approach (ICD-10-PCS; principal; 2017-12-27)
DX: E11.69 Type 2 diabetes mellitus with other specified complication (principal); M86.172 Other acute osteomyelitis, left ankle and foot; A04.72 Enterocolitis due to Clostridium difficile, not specified as recurrent; E11.51 Type 2 diabetes mellitus with diabetic peripheral angiopathy without gangrene; L97.526 Non-pressure chronic ulcer of other part of left foot with bone involvement without evidence of necrosis; E11.42 Type 2 diabetes mellitus with diabetic polyneuropathy; I10 Essential (primary) hypertension; E78.5 Hyperlipidemia, unspecified; K21.9 Gastro-esophageal reflux disease without esophagitis; Z87.891 Personal history of nicotine dependence; Z79.84 Long term (current) use of oral hypoglycemic drugs; Z79.899 Other long term (current) drug therapy; Z89.611 Acquired absence of right leg above knee
CPT/HCPCS: 36415; 36416; 80048; 80053; 80202; 83605; 85025; 87040; 87324; 87449; 87493; 88305; 96365; 96366; 96367; A4216; G8978-GP-CM; G8979-GP-CK; G8987-GO-CL; G8988-GO-CJ; J0360; J0696; J1644; J2001; J2250; J2405; J2543; J2704; J3010; J3370; J7050

== ENCOUNTER 2018-01-03 10:23 | Outpatient (CLI) | payer SELFPAY ==
[2018-01-03] MEDS ORDERED: Lidocaine 2% Jelly 5 ML TUBE ONE (11:11)
--- NOTE | 2018-01-03 12:02 | PRG ---
DATE OF SERVICE: 01/03/2018 HISTORY: Mr. Kana Post is a very pleasant 72-year-old gentleman, Ecuadorean -speaking only, who presents to the Wound Center for evaluation of a wound of the left great toe subsequent to amputation of the left great toe through the proximal phalanx. The patient underwent the preceding procedure on 12/27/[address] Juan Jean. At surgery, the wound was left open for healing by secondary intention, and negative pressure therapy was initiated intraoperatively. Previously on 09/09/2017 the patient underwent left femoral to above knee popliteal artery bypass with 8 mm ringed Propaten coated Campbell- Leonides. Upon discharge from [facility], the patient was referred to the Wound Center for assistance with dressing changes of the wound VAC. PHYSICAL EXAMINATION: VITAL SIGNS: Temperature 97.7, pulse 72, respirations 18, blood pressure 198/ 81. Accu-Chek 234. EXTREMITIES: A wound of the left great toe is present subsequent to amputation of the left great toe through the proximal phalanx. Granulation tissue is present within the wound margins. Nonviable tissue present within the wound margins was debrided with an excisional full-thickness debridement. No purulent drainage is associated with the wound. A dorsalis pedis pulse is palpable on the left. ASSESSMENT AND PLAN: 1. Left foot wound subsequent to amputation of the left great toe through the proximal phalanx on 12/27/2017. The wound was left open for healing by secondary intention at surgery, and negative pressure therapy was initiated intraoperatively. Negative pressure therapy will be continued with dressing changes of the wound VAC here in the Wound Center. The patient will be seen by Dr. Jean in 1 week. I will see Mr. Post again in 2 weeks. 2. Diabetes mellitus. The patient's Accu-Chek in clinic today is 234. The patient has been told that for optimal wound healing, his blood glucoses should remain below 150. 3. Hypertension. 4. Peripheral vascular disease. 5. Peptic ulcer disease. 6. History of gastrointestinal bleeding secondary to gastric ulcer. [facility]
== END 2018-01-03 10:24 | disposition home or self-care (01) ==
LOC: WCC 10:23
PROVIDERS: ATTEND Family Medicine
DX: T87.89 Other complications of amputation stump (principal); S91.102D Unspecified open wound of left great toe without damage to nail, subsequent encounter; E11.51 Type 2 diabetes mellitus with diabetic peripheral angiopathy without gangrene; I10 Essential (primary) hypertension; K27.9 Peptic ulcer, site unspecified, unspecified as acute or chronic, without hemorrhage or perforation; Z87.19 Personal history of other diseases of the digestive system
CPT/HCPCS: 11042; 36416

== ENCOUNTER 2018-01-06 15:09 | Outpatient (CLI) | payer SELFPAY ==
[~2018-01-06 15:09] MED LIST: Sodium Chloride 0.9% 15 ML NEB ONE
== END 2018-01-06 15:10 | disposition home or self-care (01) ==
LOC: WCC 15:09
PROVIDERS: ATTEND Family Medicine
DX: T81.89XD Other complications of procedures, not elsewhere classified, subsequent encounter (principal)
CPT/HCPCS: 97605; A4218

== ENCOUNTER 2018-01-10 13:42 | Outpatient (CLI) | payer SELFPAY | END 2018-01-10 13:43 | disposition home or self-care (01) | LOC: WCC 13:42 | PROVIDERS: ATTEND Family Medicine | DX: T81.89XD Other complications of procedures, not elsewhere classified, subsequent encounter (principal) | CPT/HCPCS: A4218 ==

== ENCOUNTER 2018-01-13 08:41 | Outpatient (CLI) | payer SELFPAY ==
[2018-01-13] MEDS ORDERED: Sodium Chloride 0.9% 15 ML NEB ONE (14:29)
== END 2018-01-13 08:42 | disposition home or self-care (01) ==
LOC: WCC 08:41
PROVIDERS: ATTEND Family Medicine
DX: T81.89XD Other complications of procedures, not elsewhere classified, subsequent encounter (principal); Z89.412 Acquired absence of left great toe
CPT/HCPCS: 97605; A4218

== ENCOUNTER 2018-01-20 15:01 | Outpatient (CLI) | payer SELFPAY ==
[2018-01-21] MEDS ORDERED: Sodium Chloride 0.9% 15 ML NEB ONE (14:34)
== END 2018-01-20 15:02 | disposition home or self-care (01) ==
LOC: WCC 15:01
PROVIDERS: ATTEND Family Medicine
DX: T81.89XD Other complications of procedures, not elsewhere classified, subsequent encounter (principal)
CPT/HCPCS: 97605

== ENCOUNTER 2018-01-24 08:41 | Outpatient (CLI) | payer SELFPAY ==
[2018-01-24] MEDS ORDERED: Sodium Chloride 0.9% 15 ML NEB ONE (09:00)
[2018-01-24] MEDS ORDERED: Lidocaine 2% Jelly 5 ML TUBE ONE (09:00)
--- NOTE | 2018-01-24 09:43 | PRG ---
DATE OF SERVICE: 01/24/2018 HISTORY: Mr. Kana Post is a very pleasant 72-year-old gentleman, Mosotho speaking only, who p resents to the Wound Center for evaluation of a wound of the left great toe subsequent to amputation of the left great toe through the proximal phalanx. The patient underwent the preceding procedure on 12/27/[address] Juan Jean. At surgery, the wound was left open for healing by secondary inte ntion and negative pressure therapy was initiated intraoperatively. Previously on 09/09/2017, the kelin woodruff underwent left femoral to above knee popliteal artery bypass with 8 mm ringed Propaten coated G ore-Leonides. Upon discharge from [facility], the patient was referred to the [facility] for assistance with dressing changes of the wound VAC. PHYSICAL EXAMINATION: VITAL SIGNS: Temperature 98.0, pulse 93, respirations 18, blood pressure 193/82. Accu-Chek 125. EXTREMITIES: A wound of the left great toe subsequent to amputation of the left great toe through th e proximal phalanx is present. The dimensions of the wound are approximately 2.0 x 1.5 cm. Granulat ion tissue is present within the wound margins. Nonviable tissue present within the wound margins, w as debrided with an excisional full-thickness debridement with the use of a curet. No purulent drain age is associated with the wound. No erythema of the skin surrounding the wound is present. No mace ration of the skin of the periwound is noted. A dorsalis pedis pulse and a posterior tibial pulse ar e both palpable on the left. No significant edema of the left foot is present on exam today. ASSESSMENT AND PLAN: 1. Left foot wound subsequent to amputation of the left great toe through the proximal phalanx on . The wound was left open for healing by secondary intention at surgery and negative pressur e therapy was initiated intraoperatively. Negative pressure therapy will be continued with dressing changes of the wound VAC here in the Wound Center. The patient will be seen by Dr. Jean in 1 week. I will see Mr. Post again in two weeks. 2. Diabetes mellitus. The patient's Accu-Chek in clinic today is 125. The patient has been reminde d that for optimal wound healing. His blood glucoses should remain below 150. 3. Hypertension. 4. Peripheral vascular disease. 5. Peptic ulcer disease. 6. History of gastrointestinal bleeding secondary to gastric ulcer.
== END 2018-01-24 08:42 | disposition home or self-care (01) ==
LOC: WCC 08:41
PROVIDERS: ATTEND Family Medicine
DX: T81.89XD Other complications of procedures, not elsewhere classified, subsequent encounter (principal); E11.9 Type 2 diabetes mellitus without complications; I10 Essential (primary) hypertension; I73.9 Peripheral vascular disease, unspecified; K27.9 Peptic ulcer, site unspecified, unspecified as acute or chronic, without hemorrhage or perforation; Z87.19 Personal history of other diseases of the digestive system
CPT/HCPCS: 11042; A4218

== ENCOUNTER 2018-01-27 13:18 | Outpatient (CLI) | payer SELFPAY | END 2018-01-27 13:19 | disposition home or self-care (01) | LOC: WCC 13:18 | PROVIDERS: ATTEND Family Medicine | DX: T81.89XD Other complications of procedures, not elsewhere classified, subsequent encounter (principal) | CPT/HCPCS: 97605; A4218 ==

== ENCOUNTER 2018-01-31 11:20 | Outpatient (CLI) | payer SELFPAY | END 2018-01-31 11:21 | disposition home or self-care (01) | LOC: WCC 11:20 | PROVIDERS: ATTEND Family Medicine | DX: T81.89XD Other complications of procedures, not elsewhere classified, subsequent encounter (principal) | CPT/HCPCS: 97602; A4218 ==

== ENCOUNTER 2018-02-16 11:06 | Outpatient (CLI) | payer SELFPAY ==
--- NOTE | 2018-02-16 10:34 | PRG ---
DATE OF SERVICE: 02/16/2018 HISTORY: Mr. Kana Post is a very pleasant 72-year-old gentleman, Mongolian -speaking only, who presents to the Wound Center for evaluation of a wound of the left great toe subsequent to amputation of the left great toe through the proximal phalanx. The patient underwent the preceding procedure on 12/27/[address] Juan Jean. At surgery, the wound was left open for healing by secondary intention, and negative pressure therapy was initiated intraoperatively. Previously on 09/09/2017 the patient underwent left femoral to above knee popliteal artery bypass with 8 mm ringed Propaten coated [place]- Leonides. Upon discharge from [facility], the patient was referred to the Wound Center for assistance with dressing changes of the wound VAC. The patient has completed a course of negative pressure therapy and is now receiving dressing changes of Silvercel followed by bordered gauze. PHYSICAL EXAMINATION: VITAL SIGNS: Temperature 98.0, pulse 71, respirations 17, blood pressure 185/ 79. Accu-Chek 120. EXTREMITIES: A wound of the left great toe subsequent to amputation of the left great toe through the proximal phalanx is present. The dimensions of the wound are approximately 0.2 x 0.4 cm. The dimensions of the wound at the time of the patient's visit on 01/24/2018 were approximately 2.0 x 1.5 cm. Granulation tissue is present within the wound margins. Nonviable tissue present within the wound margins was debrided with an excisional full-thickness debridement with the use of a curette. Undermining and desiccated tissue at the periphery of the wound were excised with the use of scissors. No purulent drainage is associated with the wound. No erythema of the skin surrounding the wound is present. No maceration of the skin of the periwound is noted. A dorsalis pedis pulse and a posterior tibial pulse are both palpable on the left. No significant edema of the left foot is present on exam today. ASSESSMENT AND PLAN: 1. Left foot wound subsequent to amputation of the left great toe through the proximal phalanx on 12/27/2017. The wound was left open for healing by secondary intention at surgery. Negative pressure therapy was initiated intraoperatively. The patient has completed a course of negative pressure therapy, and dressing changes of Silvercel and bordered gauze will be continued 3 times per week after cleansing and irrigation. I will see Mr. Post again in two weeks. 2. Diabetes mellitus. The patient's Accu-Chek in clinic today is 120. The patient has been reminded that for optimal wound healing, his blood glucoses should remain below 150. 3. Hypertension. 4. Peripheral vascular disease. 5. Peptic ulcer disease. 6. History of gastrointestinal bleeding secondary to gastric ulcer. MTDD
[2018-02-16] MEDS ORDERED: Lidocaine 2% Jelly 5 ML TUBE ONE (17:55)
[2018-02-16] MEDS ORDERED: Sodium Chloride 0.9% 15 ML NEB ONE (17:55)
== END 2018-02-16 11:07 | disposition home or self-care (01) ==
LOC: WCC 11:06
PROVIDERS: ATTEND Family Medicine
DX: T81.89XD Other complications of procedures, not elsewhere classified, subsequent encounter (principal); E11.9 Type 2 diabetes mellitus without complications; I73.9 Peripheral vascular disease, unspecified; I10 Essential (primary) hypertension; K27.9 Peptic ulcer, site unspecified, unspecified as acute or chronic, without hemorrhage or perforation; Z87.19 Personal history of other diseases of the digestive system
CPT/HCPCS: 11042; A4218

== ENCOUNTER 2018-03-02 09:51 | Outpatient (CLI) | payer SELFPAY ==
--- NOTE | 2018-03-02 12:12 | PRG ---
DATE OF SERVICE: 03/02/2018 HISTORY: Mr. Kana Post is a very pleasant 72-year-old gentleman, Angolan speaking only, who p resents to the Wound Center for evaluation of a wound of the left great toe subsequent to amputation of the left great toe through the proximal phalanx. The patient underwent the preceding procedure on 12/27/[address] Juan Jean. At surgery, the wound was left open for healing by secondary inte ntion and negative pressure therapy was initiated intraoperatively. Previously on 09/09/2017 the pat ient underwent left femoral to above knee popliteal artery bypass with 8 mm ringed Propaten coated Go re-Leonides. Upon discharge from [facility], the patient was referred to the Wound Center for assistance with dressing changes of the wound VAC. The patient completed a course of neg ative pressure therapy and then was placed on dressing changes of Silvercel followed by bordered gauz e. PHYSICAL EXAMINATION: VITAL SIGNS: Temperature 98.2, pulse 79, respirations 18, blood pressure 126/60. Accu-Chek 125. EXTREMITIES: A wound of the left great toe subsequent to amputation of the left great toe through th e proximal phalanx is present. A posterior tibial pulse is easily palpable on the left. No signific ant edema of the left foot is present on exam today. The wound is healing without complications or a ny signs of infection. ASSESSMENT AND PLAN: 1. Left foot wound subsequent to amputation of the left great toe through the proximal phalanx on . The wound was left open for healing by secondary intention at surgery. Negative pressure therapy was initiated intraoperatively. The patient completed a course of negative pressure therapy followed by dressing changes of Silvercel and bordered gauze. As stated above, the wound is healing without complications or any signs of infection. The wound has almost healed completely and Mr. Ethan martinez will be discharged from clinic today with followup on a p.r.n. basis. The patient has been ins tructed to perform dressing changes of bordered gauze 3 times per week after cleansing and irrigation for 1 week and then discontinue all dressing changes. The patient understands and is in agreement w ith the preceding treatment plan. 2. Diabetes mellitus. The patient's Accu-Chek in clinic today is 125. The patient has been reminde d that for optimal wound healing, his blood glucoses should remain below 150. 3. Hypertension. 4. Peripheral vascular disease. 5. Peptic ulcer disease. 6. History of gastrointestinal bleeding secondary to gastric ulcer.
== END 2018-03-02 09:52 | disposition home or self-care (01) ==
LOC: WCC 09:51
PROVIDERS: ATTEND Family Medicine
DX: T81.89XD Other complications of procedures, not elsewhere classified, subsequent encounter (principal); E11.9 Type 2 diabetes mellitus without complications; I10 Essential (primary) hypertension; I73.9 Peripheral vascular disease, unspecified; K27.9 Peptic ulcer, site unspecified, unspecified as acute or chronic, without hemorrhage or perforation; Z87.19 Personal history of other diseases of the digestive system
CPT/HCPCS: 97602; A4218

== ENCOUNTER 2023-08-27 22:57 | Emergency (ER) | payer MEDICAID, SELFPAY ==
[2023-08-27 23:37] LABS: #Eosinphils 0.2 thou/uL (0.0-0.7); #Monocytes 0.4 thou/uL (0.11-0.59); #Neutrophils 8.9 thou/uL (1.40-6.50); %Basophils 0.3 % (0.0-1.0); %Eosinophils 1.9 % (0.0-10.0); %Lymphocytes 6.9 % (21.0-51.0); %Monocytes 3.4 % (0.0-10.0); Hematocrit 43.7 % (42.0-52.0); Hemoglobin 14.7 g/dL (14.0-18.0); Mean Corpuscular HGB CONC 33.6 g/dL (32.0-36.0); Mean Corpuscular Hemoglobin 31.3 pg (27.0-31.0); Mean Platelet Volume 9.5 fL (7.4-10.4); Platelet Count 285 10x3/uL (130-400); RBC Distribution Width 14.3 % (11.5-14.5); White Blood Cell (WBC) Count 10.3 10x3/uL (4.8-10.8)
[2023-08-27] MEDS ORDERED: Ketamine In 0.9 % NaCl 50 MG/5 ML SYRINGE ONE (23:57)
[2023-08-28] LABS: ALT (SGPT) 12 U/L (8-55); AST (SGOT) 17 U/L (5-34); Albumin 3.7 g/dL (3.4-4.8); Alkaline Phosphatase 92 U/L (40-110); Anion Gap 16 mmol/L (10-20); BUN (Urea Nitrogen) 22 mg/dL (8.4-25.7); Bilirubin, Total 0.3 mg/dL (0.2-1.2); Calc. Creatinine Clearance 0 mL/min (70-130); Calcium 8.8 mg/dL (7.8-10.44); Carbon Dioxide 29 mmol/L (23-31); Chloride 97 mmol/L (98-107); Estimated GFR 95; Globulin 4.2 g/dL (2.4-3.5); Glucose 244 mg/dL (83-110); Lipase 46 U/L (8-78); Magnesium 1.8 mg/dL (1.6-2.6); Protein, Total 7.9 g/dL (5.8-8.1); Sodium 138 mmol/L (136-145)
[2023-08-28 00:03] LABS: Troponin I Less than 0.010 ng/mL (< 0.028)
[2023-08-28] MEDS ORDERED: Rocuronium Bromide 10 MG/ML (10ML VIAL) ONE (00:46)
[2023-08-28 01:21] LABS: Actual Bicarbonate (HCO3a) 29.1 mEq/L (22-28); Analyzer IN Cardio ER; Base Excess (BEa) 3.2 mEq/L (-2.0 to +3.0); CO2 Tension 48.9 mmHg (35.0-45.0); Calcium, Ionized (arterial) 1.15 mmol/L (1.12-1.30); Carboxyhemoglobin (COHb) 0.1 gm% (0.0-3.0); Hematocrit-ABG 44 % (42.0-52.0); Potassium - ABG Lab 3.39 mmol/L (3.70-5.30); pH, Arterial 7.392 (7.35-7.45)
[2023-08-28 01:26] LABS: O2 Tension (PaO2), arterial 48.8 mmHg (> 70.0)
[2023-08-28 01:27] LABS: ALV-art Gradient 603.075 mmHg (0-20); Puncture Site RRA
[2023-08-28] MEDS ORDERED: Fentanyl CADD 100 ML IV SCH (01:45)
[2023-08-28] MEDS ORDERED: Propofol 1,000 MG/100 ML VIAL IV ONE (01:46)
[2023-08-28] MEDS ORDERED: Lidocaine 1% w/Epinephrine 1:100K 20 ML VIAL ONE (02:33)
[2023-08-28] MEDS ORDERED: fentaNYL 50 mcg/mL 1 mL Vial ONE (02:38)
[2023-08-28 02:45] LABS: SARS-CoV-2 NAA Rapid Test Not Detected (NotDetected)
[2023-08-28] MEDS ORDERED: Piperacillin/Tazobactam 3.375 GM VIAL ONE (03:10)
== END 2023-08-28 03:49 | disposition short-term general hospital (02) ==
LOC: ERS 22:57
DX: T17.400A Unspecified foreign body in trachea causing asphyxiation, initial encounter (principal); J98.51 Mediastinitis; J93.83 Other pneumothorax; E11.9 Type 2 diabetes mellitus without complications; E78.00 Pure hypercholesterolemia, unspecified; I10 Essential (primary) hypertension; K21.9 Gastro-esophageal reflux disease without esophagitis; F17.210 Nicotine dependence, cigarettes, uncomplicated; Z20.822 Contact with and (suspected) exposure to COVID-19
CPT/HCPCS: 31500; 32551; 36600; 71045; 71250; 80053; 82805; 83690; 83735; 83880; 84484; 85025; 93005; 94002; 96374; J2543; J2704; J3010; J3490